=== PATIENT | female | born 1930 | race Caucasian/White ===

== ENCOUNTER 2016-12-03 18:12 | Emergency (ER) | payer OTHER, MEDICARE ==
[~2016-12-03] VITALS: Ht 165.1 cm; Wt 54.4 kg
[~2016-12-03 18:12] MED LIST: BISACODYL10 MG PR; COUMADIN 2 MG TA2 MG PO; DOCUSATE SODIU100 MG PO; LANTUS SOLOS100 U/ML SC; METFORMIN850 MG PO; NORCO 325 MG-51 TAB PO; PERCOCET 325 MG1 TA2 PO; PRINIVIL 5MG5 MG PO; ZESTORETIC 12.51 TA1 PO
--- NOTE | 2016-12-03 18:16 | ED MVC/FALL/TRAUMA COMPLAINT ---
History of Present Illness General Chief Complaint: Upper Extremity Injury Stated Complaint: RIGHT SHOULDER PAIN Source: patient Exam Limitations: no limitations Vital Signs & Intake/Output Vital Signs & Intake/Output Vital Signs Date Time Temp Pulse Resp B/P Pulse O2 O2 Flow FiO2 Ox Delivery Rate 12/03 2338 97.9 73 19 165/74 96 12/03 2216 98.0 75 18 172/68 96 Room Air 12/03 2011 97.3 74 18 170/78 96 12/03 1821 98 12/03 1816 97.3 61 16 196/84 99 Room Air ED Intake and Output 12/04 0000 12/03 1200 Intake Total 2000 Output Total Balance 1999 Intake, IV 1999 Intake, Oral 0 Patient 120 lb Weight Allergies Coded Allergies: NO KNOWN ALLERGIES (10/24/14) Triage Nurses Notes Reviewed? yes Onset: Abrupt Duration: constant Timing: single episode today Severity: severe Severity Numbers: 7 Injuries/Fall Location: upper extremity Method of Injury: direct blow, fall HPI: Patient is a 86-year-old female with a past medical history of diabetes type 2 who presents emergency room stating that 1 hour prior to arrival patient was lying in her bed she accidentally fell off the bed striking the right lateral aspect of her shoulder to the ground approximately 3 feet in the air in which she since was complaining of service having severe right shoulder pain. Patient denies any preceding episode of lightheadedness or dizziness Denies any head strike denies any back pain neck pain chest pain abdominal pain elbow pain or wrist pain. Patient was brought in by ambulance. Patient states that right shoulder movements make worse. It was noted by me the EMS took a blood fingerstick and noted to be excessively high and unreadable. (EVA BARKSDALE,ALESSANDRO) Reconcile Medications Hydrocodone/Acetaminophen (Vicodin 5-300 MG Tablet) 5 MG-300 MG TABLET 1 TAB PO TID PRN PAIN DO NOT OPERATE MOTOR VEHICLES WITH THIS MEDICATION Insulin Aspart Protam & Aspart (Novolog Mix 70-30 Flexpen Syrn) 100 UNIT/ML (70- 30) INSULN.PEN 20 UNITS SC QPM DM (Reported) (BETTY ZAMORA,BRITTANI Shrestha) Past History Medical History Any Pertinent Medical History? see below for history Endocrine: diabetes History of MRSA: No History of VRE: No History of CDIFF: No Pneumonia Vaccine: 07/26/06 Influenza Vaccine: 07/26/14 Surgical History Surgical History: non-contributory Psychosocial History Who do you live with Patient/Self What is your primary language Tajik Family History Hx Contributory? No (ALESSANDRO BARNES) Review of Systems Review of Systems Constitutional: Reports: no symptoms. Eyes: Reports: no symptoms. Ears, Nose, Throat, Mouth: Reports: no symptoms. Respiratory: Reports: no symptoms. Cardiovascular: Reports: no symptoms. Gastrointestinal/Abdominal: Reports: no symptoms. Genitourinary: Reports: no symptoms. Musculoskeletal: Reports: see HPI, joint pain. Skin: Reports: no symptoms. Neurological/Psychological: Reports: no symptoms. All Other Systems: Reviewed and Negative (ALESSANDRO BARNES) Physical Exam Physical Exam General Appearance: no apparent distress, alert, comfortable Comments: Well-developed well-nourished person in no acute distress HEENT: Normal EENT exam, Neck: Supple, no lymphadenopathy, normal range of motion without pain or tenderness No central spinous tenderness, normal inspection Back:. No central spine tenderness normal inspection Cardiovascular: Regular rate and rhythms no murmurs rubs or gallops, normal JVP Respiratory: Chest nontender. No respiratory distress.breath sounds clear to auscultation bilaterally Abdomen: Soft, nontender nondistended, no appreciable organomegaly. Normal bowel sounds. No ascites Extremity: No edema, no calf tenderness to palpation, normal and equal pulses. Right shoulder general is glenohumeral point tenderness patient unable to active move shoulder Right elbow normal inspection nontender full active range of motion Right wrist normal inspection nontender full active range of motion Right upper extremity dermatomes intact radial pulse +2 capillary refill intact Neuro: Alert oriented x3, motor sensory normal, Skin: No appreciable rash on exposed skin, skin is warm and dry. Psych: Mood and affect is normal, memory and judgment is normal. Core Measures ACS in differential dx? No Severe Sepsis Present: No Septic Shock Present: No (ALESSANDRO BARNES) Progress Differential Diagnosis: aoritic dissection, abd injury, C/T/L spine injury, ext injury, ICH, pelvis injury, pnemothorax, spinal cord injury Plan of Care: Orders Procedure Date/time Status LACTIC ACID 12/03 2143 Active Durable Medical Equipment 12/03 1933 Active URINALYSIS 12/03 192 Complete MIXED VENOUS BLOOD GAS (GEN) 12/03 1843 Active LACTIC ACID 12/03 1843 Complete COMPREHENSIVE METABOLIC PANEL 12/03 1843 Complete CBC WITHOUT DIFFERENTIAL 12/03 1843 Complete ACETONE 12/03 1843 Complete FingerStick- Glucose 12/03 1815 Active Laboratory Tests 12/03/161928: Urine Color STRAW, Urine Clarity CLEAR, Urine pH 6.5, Ur Specific Davidson <= 1.005, Urine Protein NEG, Urine Ketones NEG, Urine Nitrite NEG, Urine Bilirubin NEG, Urine Urobilinogen 0.2, Ur Leukocyte Esterase NEG, Ur Microscopic EXAM NOT REQUIRED, Urine Hemoglobin NEG, Urine Glucose >=1000 H 12/03/161851: Anion Gap 10, Estimated GFR 53 L, BUN/Creatinine Ratio 28.0 H, Glucose 547 *H, Lactic Acid 1.6, Calcium 9.1, Total Bilirubin 0.5, AST 16, ALT 23, Alkaline Phosphatase 73, Total Protein 6.7, Albumin 3.7, Globulin 3.0, Albumin/Globulin Ratio 1.2, Acetone Level NEGATIVE 12/03/161843: CBC w Diff NO MAN DIFF REQ, RBC 4.64, MCV 87.1, MCH 29.2, RDW 13.1, MPV 8.3, Gran % 82.9 H, Lymphocytes % 10.5 L, Monocytes % 4.9, Eosinophils % 1.5, Basophils % 0.2, Absolute Granulocytes 6.5, Absolute Lymphocytes 0.8 L, Absolute Monocytes 0.4, Absolute Eosinophils 0.1, Absolute Basophils 0, PUBS MCHC 33.5 Patient on initial x-ray findings noted concerns of right humeral fracture and wished a shoulder immobilizer was placed immediately. Post neurovascular was intact for the patient's right upper extremity. Discussed patient and x-ray findings with orthopedic doctor Esme who advised patient to be placed in shoulder immobilizer and can be safely discharged for follow-up in his office tomorrow. This was discussed with patient and will comply. Patient did note to have significantly elevated blood sugar which she states that she is insulin- dependent type 2 diabetic who did not take her medications today due to the fall. Patient's blood sugar prior to discharge had improved and patient was strongly advised to continue with blood sugar regimen and follow up with wine cellar worker Dr. Diamond. Upon discharge patient looks well no apparent distress. Discussed disposition plan with Dr. Alarcon who agrees. (EVA BARKSDALE,ALESSANDRO) Diagnostic Imaging: Viewed by Me: Radiology Read. Radiology Impression: fracture Comments: PATIENT: KATHLEEN HAIRSTON PRESENT AGE: 86 PATIENT ACCOUNT NO: [id number] : 30 LOCATION: [facility] ORDERING PHYSICIAN: ALESSANDRO BARKSDALE SERVICE DATE: 12/03/16 EXAM TYPE: RAD - XRY-SHOULDER COMPLETE-RIGHT EXAMINATION: XR SHOULDER, RIGHT CLINICAL INFORMATION: Fall. Right shoulder pain. COMPARISON: None TECHNIQUE: AP external rotation, Grashey, scapular Y, and axillary views of the right shoulder. FINDINGS: There is a surgical neck comminuted fracture right humerus. No dislocation seen. The AC joint is intact catheter intact. The soft tissues are normal. IMPRESSION: Comminuted fracture surgical neck right humerus without dislocation. (ALESSANDRO BARNES) Departure Departure Disposition: HOME OR SELF CARE Condition: Stable Clinical Impression Primary Impression: Right humeral fracture Secondary Impressions: Hyperglycemia Referrals: ISAK ZAMORA,ERICA Joseph (PCP/Family) NICO ZAMORA,YOHAN Roman Additional Instructions: As discussed when you arrive home please check her blood sugar again and IF NEEDED GIVE YOURSELF insulin as directed by your wine cellar worker. Tomorrow follow up with your wine cellar worker Dr. Diamond for further evaluation and treatment. Tomorrow please follow-up with orthopedic doctor Dr. WALSH tomorrow for further evaluation treatment. Continue TO use the shoulder immobilizer placed ON YOU IN the emergency room at all times for stability and support. Begin [id number] ibuprofen for pain and inflammation and begin the prescription of Vicodin for breakthrough pain relief. If symptoms worsen return to the emergency room. Prescriptions waiting at [facility] pharmacy Departure Forms: Customer Survey General Discharge Information Prescriptions: Current Visit Scripts Hydrocodone/Acetaminophen (Vicodin 5-300 MG Tablet) 1 TAB PO TID PRN PAIN #12 TAB DO NOT OPERATE MOTOR VEHICLES WITH THIS MEDICATION (ALESSANDRO BARNES) PA/SAMPLE DYE MIXER Co-Sign Statement Statement: ED Attending supervision documentation- [X] I saw and evaluated the patient. I have also reviewed all the pertinent lab results and diagnostic results. I agree with the findings and the plan of care as documented in the PA's/SAMPLE DYE MIXER's documentation. [X] I have reviewed the ED Record and agree with the PA's/SAMPLE DYE MIXER's documentation. [] Additions or exceptions (if any) to the PAs/SAMPLE DYE MIXER's note and plan are summarized below: [] (BETTY ZAMORA,BRITTANI Shrestha) Procedures Splinting Location: RIGHT SHOULDER Splint: SHOULDER IMMOBILIZER Splint Applied By: splint applied by me Pre-Proc Neuro Vasc Exam: normal Post-Proc Neuro Vasc Exam: normal (EVA BARKSDALE,ALESSANDRO)
[2016-12-03 19:06] LABS: ABSOLUTE BASOPHIL COUNT 0 /CUMM (0.0-0.2); ABSOLUTE EOSINOPHIL COUNT 0.1 /CUMM (0.0-0.7); ABSOLUTE GRANULOCYTE CT 6.5 /CUMM (1.4-6.5); ABSOLUTE LYMPH COUNT 0.8 /CUMM (1.2-3.4); ABSOLUTE MONOCYTE COUNT 0.4 /CUMM (0.10-0.60); BASOPHIL % 0.2 % (0.0-2.0); EOSINOPHIL % 1.5 % (0-5); GRANULOCYTE % 82.9 % (42.2-75.2); HEMATOCRIT 40.4 % (37-47); MEAN CORPUSCULAR HGB 29.2 PG (27.0-31.0); MEAN CORPUSCULAR HGB CONC 33.5 G/DL (33.0-37.0); MEAN CORPUSCULAR VOLUME 87.1 FL (81.0-99.0); MEAN PLATELET VOLUME 8.3 FL (7.4-10.4); PLATELET COUNT 223 /CUMM (130-400); RBC DISTRIBUTION WIDTH 13.1 % (11.5-14.5); RED BLOOD CELL CT 4.64 /CUMM (4.20-5.40); WHITE BLOOD CELL COUNT 7.9 /CUMM (4.8-10.8)
--- NOTE | 2016-12-03 19:22 | RADIOLOGY REPORT ---
EXAMINATION: XR SHOULDER, RIGHT CLINICAL INFORMATION: Fall. Right shoulder pain. COMPARISON: None TECHNIQUE: AP external rotation, Grashey, scapular Y, and axillary views of the right shoulder. FINDINGS: There is a surgical neck comminuted fracture right humerus. No dislocation seen. The AC joint is intact catheter intact. The soft tissues are normal. IMPRESSION: Comminuted fracture surgical neck right humerus without dislocation.
[2016-12-03] MEDS ORDERED: VICODIN 5-3001 EACH PO (23:09)
[2016-12-03 23:38] VITALS: BP 165/74
[2016-12-04] MEDS ORDERED: NOVOLOG MI100 UNIT/2 SC (21:34)
== END 2016-12-03 23:39 ==
LOC: ERH 18:12
PROVIDERS: Physician Assistant
DX: S42.211A Unspecified displaced fracture of surgical neck of right humerus, initial encounter for closed fracture (principal); W06.XXXA Fall from bed, initial encounter
CPT/HCPCS: 73030-RT; 81003; 96372; 96374; 96375; J1815

== ENCOUNTER 2016-12-04 19:48 | Inpatient (IN) | payer OTHER, MEDICARE ==
[~2016-12-04] VITALS: Ht 165.1 cm; Wt 51.7 kg
[~2016-12-04 19:48] MED LIST changes: +VICODIN 5-3001 EACH PO
--- NOTE | 2016-12-04 20:42 | ED GENERAL ADULT ---
History of Present Illness General Chief Complaint: General Adult Stated Complaint: SIB DR PARISI FOR ADMISSION Source: patient, family Exam Limitations: no limitations Vital Signs & Intake/Output Vital Signs & Intake/Output Vital Signs Date Time Temp Pulse Resp B/P Pulse O2 O2 Flow FiO2 Ox Delivery Rate 12/04 2236 98.2 66 16 180/78 95 Room Air 12/04 2007 98.2 62 18 152/79 96 Room Air ED Intake and Output 12/05 0000 12/04 1200 Intake Total 0 Output Total Balance 0 Intake, Oral 0 Allergies Coded Allergies: NO KNOWN ALLERGIES (10/24/14) Reconcile Medications Hydrocodone/Acetaminophen (Vicodin 5-300 MG Tablet) 5 MG-300 MG TABLET 1 TAB PO TID PRN PAIN DO NOT OPERATE MOTOR VEHICLES WITH THIS MEDICATION Insulin Aspart Protam & Aspart (Novolog Mix 70-30 Flexpen Syrn) 100 UNIT/ML (70- 30) INSULN.PEN 20 UNITS SC QPM DM (Reported) Triage Note: TRIAGE; PT TO ED WITH FAMILY, STATES THAT THEY WERE D/C FROM THE ER HERE LAST NIGHT. FAMILY STATES THEY DONT THINK THEY SHOULD HAVE GONE HOME. STATES THAT PT WAS DX WITH A BROKEN RT ARM, AND IS CURRENTLY IN A SLING. STATES THAT PT HAS NOT BEEN ABLE TO WALK WELL AT HOME, LIVES AT HOME IN AN APARTMENT, BUT HAS TO WALK UP STAIRS TO GET TO IT. STATES THAT IT IS GETTING DIFFICULT FOR THE FAMILY TO KEEP CARING FOR HER. DENIES HAVING ANY SERVICES AT HOME LIKE NURSES OR AIDES. FAMILY CALLED DR PARISI ([facility]) AND TOLD TO COME HERE FOR ADMISSION. Triage Nurses Notes Reviewed? yes Onset: Gradual Duration: day(s): (2) Timing: no prior history Injury Environment: home Severity: moderate Severity Numbers: 8 No Modifying Factors: none HPI: Patient is an 86 yo female with history of diabetes presenting to the emergency department with chief complaint of lower extremity weakness, right arm pain. She reports that she was seen and evaluated here in the emergency department yesterday and diagnosed with a right proximal humeral fracture and placed in a sling. Patient is usually ambulatory with a walker and has not been able to use a walker secondary to use of sling. Patient also reports that over the past day and a half her lower extremities have been weak. She feels like she can't take a few steps without falling. Family is concerned because she was on a second floor apartment. It is unsafe for her to be at home. Patient denying any nausea vomiting fevers or chills chest pain or shortness of breath. Denies any more falls. Denies any numbness or tingling. (NEETU BLUE) Past History Travel History Traveled to [place] past 21 day No Medical History Any Pertinent Medical History? see below for history Endocrine: diabetes History of MRSA: No History of VRE: No History of CDIFF: No Surgical History Surgical History: non-contributory Psychosocial History Who do you live with Patient/Self What is your primary language Hungarian Tobacco Use: Never used Family History Hx Contributory? No (NEETU BLUE) Review of Systems Review of Systems Constitutional: Reports: weakness. Comments Review of systems: See HPI, All other systems negative. Constitutional, no chills fever or weight loss HEENT: No visual changes no sore throat no congestion Cardiovascular: No chest pain ,palpitation , orthopnea or ankle swelling Skin, no jaundice no rashes Respiratory: No dyspnea cough sputum or hemoptysis GI: No nausea no vomiting : No dysuria No hematuria Muscle skeletal: no back pain, no neck pain, Neurologic: No numbness no confusion Psych: No stress anxiety or depression,. Heme/endocrine: No bruising no bleeding no polyuria or polydipsia Immunology: No splenectomy or history of AIDS (NEETU BLUE) Physical Exam Physical Exam General Appearance: well developed/nourished, no apparent distress, alert, awake , comfortable Comments: Well-developed well-nourished person in no acute distress HEENT: Pupils equally round and reactive to light and accommodation. Nose is atraumatic. External auditory canal and Tympanic membranes clear. Pharynx normal. No swelling or edema. Neck: Normal inspection Back: Nontender Cardiovascular: Regular rate and rhythms no murmurs rubs or gallops, normal JVP Respiratory: Chest nontender. No respiratory distress.breath sounds clear to auscultation bilaterally Extremity: No edema, right upper extremity is in a sling. Able to move right hand without difficulty or pain. Radial pulses are 2+ bilaterally. Full range of motion of left upper and lower extremities without difficulty or pain. Muscular strength is 4 out of 5 in the lower extremities and left upper extremity while seated on the stretcher. Patient requiring max assist of one to stand at bedside with unsteady lower extremities. Neuro: Alert oriented x3, motor sensory normal, cranial nerves II through XII grossly intact. Skin: No appreciable rash on exposed skin, skin is warm and dry. Psych: Mood and affect is normal, memory and judgment is normal. Core Measures ACS in differential dx? No CVA/TIA Diagnosis: No Severe Sepsis Present: No Septic Shock Present: No (NEETU BLUE) Progress Differential Diagnoses I considered the following diagnoses in my evaluation of the patient: Multifactorial gait disorder, hyperglycemia, need for rehabilitation services, weakness, electrolyte abnormal any, dehydration, viral syndrome Plan of Care: Orders Procedure Date/time Status Regular Diet 12/05 B Active OXYGEN SETUP (GEN) 12/04 2328 Active Saline Lock 12/04 2328 Active Admit to inpatient 12/04 2328 Active Vital Signs 12/04 2328 Active Activity/Ambulation 12/04 2328 Active Code Status 12/04 2328 Active Patient Data 12/04 2242 Active Intake & Output 12/04 2053 Active FingerStick- Glucose 12/04 2039 Active URINALYSIS 12/04 2039 Active TROPONIN LEVEL 12/04 2039 Complete GLYCOSYLATED HGB 12/04 2039 Active COMPREHENSIVE METABOLIC PANEL 12/04 2039 Complete CBC WITHOUT DIFFERENTIAL 12/04 2039 Complete ACETONE 12/04 2039 Complete EKG 12/04 2039 Active Laboratory Tests 12/04/162111: Hemoglobin A1c Pending, CBC w Diff NO MAN DIFF REQ, RBC 4.10 L, MCV 86.8, MCH 29.4, RDW 13.3, MPV 8.0, Gran % 72.4, Lymphocytes % 13.9 L, Monocytes % 11.2 H , Eosinophils % 2.2, Basophils % 0.3, Absolute Granulocytes 5.9, Absolute Lymphocytes 1.1 L, Absolute Monocytes 0.9 H, Absolute Eosinophils 0.2, Absolute Basophils 0, PUBS MCHC 33.8 12/04/162039: Anion Gap 7, Estimated GFR > 60, BUN/Creatinine Ratio 20.0, Glucose 188 H, Calcium 9.3, Total Bilirubin 0.6, AST 16, ALT 21, Alkaline Phosphatase 60, Troponin I < 0.01, Total Protein 6.2 L, Albumin 3.4 L, Globulin 2.8, Albumin/ Globulin Ratio 1.2, Acetone Level NEGATIVE Initial ED EKG: sinus rhythm at 58 bpm Comments: on arrival patient no acute distress, right upper extremity is in a sling. She is weak when standing at bedside. Patient will require rehabilitation services. Family informed of all upper results. Patient will be admitted for multifactorial gait disorder, weakness, hyperglycemia. Discharge at this time will be medically harmful. Patient unsafe home. Patient requiring physical therapy evaluation. (NEETU BLUE) Departure Departure Time of Disposition: 2241 Disposition: STILL A PATIENT Condition: Stable Clinical Impression Primary Impression: Multifactorial gait disorder Secondary Impressions: Hyperglycemia, Weakness Referrals: ERICA PARISI MD (PCP/Family) Departure Forms: Customer Survey General Discharge Information Admission Note Spoke With: ANIBAL FOSTER MD Documentation of Exam: Documentation of any treatments & extenuating circumstances including Concerns Regarding Discharge (functional status, medication knowledge or non-compliance, living conditions, etc.) that warrant an admission rather than observation: Patient requiring physical therapy consultation, rehabilitation placement, pain assessment, serial fingerstick checks and monitoring for hyperglycemia which can also continue to weakness. Unsafe at home secondary to new right upper extremity fracture. (NEETU BLUE) PA/GARDENER FLORIST Co-Sign Statement Statement: ED Attending supervision documentation- x I saw and evaluated the patient. I have also reviewed all the pertinent lab results and diagnostic results. I agree with the findings and the plan of care as documented in the PA's/GARDENER FLORIST's documentation. [] I have reviewed the ED Record and agree with the PA's/GARDENER FLORIST's documentation. [] Additions or exceptions (if any) to the PAs/GARDENER FLORIST's note and plan are summarized below: [] (MRAIAM MARIE MD) Critical Care Note Critical Care Note Critical Care Time: non-applicable (NEETU LBUE)
[2016-12-04 21:27] LABS: ABSOLUTE BASOPHIL COUNT 0 /CUMM (0.0-0.2); ABSOLUTE EOSINOPHIL COUNT 0.2 /CUMM (0.0-0.7); ABSOLUTE GRANULOCYTE CT 5.9 /CUMM (1.4-6.5); ABSOLUTE LYMPH COUNT 1.1 /CUMM (1.2-3.4); ABSOLUTE MONOCYTE COUNT 0.9 /CUMM (0.10-0.60); BASOPHIL % 0.3 % (0.0-2.0); EOSINOPHIL % 2.2 % (0-5); GRANULOCYTE % 72.4 % (42.2-75.2); HEMATOCRIT 35.6 % (37-47); MEAN CORPUSCULAR HGB 29.4 PG (27.0-31.0); MEAN CORPUSCULAR HGB CONC 33.8 G/DL (33.0-37.0); MEAN CORPUSCULAR VOLUME 86.8 FL (81.0-99.0); PLATELET COUNT 220 /CUMM (130-400); RBC DISTRIBUTION WIDTH 13.3 % (11.5-14.5); WHITE BLOOD CELL COUNT 8.1 /CUMM (4.8-10.8)
[2016-12-04] MEDS ORDERED: NOVOLOG MI100 UNIT/2 SC (21:34)
--- NOTE | 2016-12-05 02:31 | History & Physical ---
NORMA ARCHIBALD 12/05/16 0221: General Information and HPI Source of Information: patient, family Exam Limitations: no limitations History of Present Illness: She is 86-year-old woman with past medical history of diabetes. She was recently here in [facility] ER on December 03 for right shoulder pain after having a mechanical fall. She was found to have a Comminuted fracture surgical neck right humerus without dislocation. She was placed in shoulder immobilizer and told to follow-up with orthopedic. She was also having hyperglycemia, blood sugar 547. She was advised to follow charger operator, Dr. Diamond. Today patient presented in ER with family stating that patient lives alone and is not able to take care of herself and perform her activities of daily living. She does not have any health services at home. Patient was also having difficulty ambulating lately. Currently patient offers no complaints except mild pain in her right arm that gets worse upon movement. She denies any breathing difficulty, chest pain or discomfort, dizziness or lightheadedness, palpitations, nausea, vomiting, abdominal pain, diarrhea or constipation, any change in urinary habits, leg swelling. She also denies any numbness or tingling of her right arm/hand. Allergies/Medications Allergies: Coded Allergies: NO KNOWN ALLERGIES (10/24/14) Home Med list Hydrocodone/Acetaminophen (Vicodin 5-300 MG Tablet) 5 MG-300 MG TABLET 1 TAB PO TID PRN PAIN DO NOT OPERATE MOTOR VEHICLES WITH THIS MEDICATION Insulin Aspart Protam & Aspart (Novolog Mix 70-30 Flexpen Syrn) 100 UNIT/ML (70- 30) INSULN.PEN 20 UNITS SC QPM DM (Reported) Past History Travel History Traveled to [place] past 21 day No Medical History Endocrine: diabetes History of MRSA: No History of VRE: No History of CDIFF: No Surgical History Surgical History: RIGHT KNEE SURGERY, RIGHT HIP SURGERY Past Family/Social History Psychosocial History Who Do You Live With? self Services at Home: None Smoking Status: Never Smoked ETOH Use: occasional use Illicit Drug Use: denies illicit drug use Review of Systems Review of Systems Constitutional: Reports: see HPI. Exam & Diagnostic Data Last 24 Hrs of Vital Signs/I&O Vital Signs Date Time Temp Pulse Resp B/P Pulse O2 O2 Flow FiO2 Ox Delivery Rate 12/05 224 98.2 70 18 150/80 97 Room Air 12/04 2236 98.2 66 16 180/78 95 Room Air 12/04 2007 98.2 62 18 152/79 96 Room Air Intake & Output 12/05 0800 12/05 0000 12/04 1600 Intake Total 0 Output Total Balance 0 Intake, Oral 0 Physical Exam General Appearance Alert, Oriented X3, Cooperative, No Acute Distress, RIGHT SHOULDER IMMOBILIZER Skin No Rashes HEENT Mucous Membr. moist/pink Neck Supple Cardiovascular Regular Rate Lungs Clear to Auscultation Abdomen Normal Bowel Sounds, Soft, No Tenderness Neurological Normal Speech, Strength at 5/5 X4 Ext, Sensation Intact, Cranial Nerves 3-12 NL Extremities No Edema, Normal Pulses, right shoulder braces in place. Range of motion was not assessed because of pain. Pulses palpable. Sensations intact Assessment/Plan Assessment: She is 86-year-old woman with past medical history of diabetes, recent right humeral fracture status post mechanical fall is going to be admitted on general medicine floor as patient and her family is not able to take care of her. Lately she is having difficulty ambulating and unsteady with her gait. Please note patient lives alone but sometimes daughter helps her to perform her activities of daily living. Problem list 1. Patient might need rehabilitation placement due to above-mentioned reasons 2. Poorly controlled diabetes mellitus 3. High blood pressure. Does not have history of hypertension. In ER blood pressure was 194/80 manually. Plan We will admit patient on general medicine floor. Vitals every shift. Because of high blood pressure patient was given 1 time dose of by mouth amlodipine. We will closely monitor blood pressure. If persistently high can start her on scheduled antihypertensive. Pain management with Tylenol, Vicodin and Toradol. Ortho consult in a.m. Endo consult for diabetes management. Patient has been started on NovoLog insulin sliding scale. Accu-Cheks before each meal and at bedtime. Physical therapy evaluation and treatment. Pain management pathway. Consistent carbohydrate diet. Subcutaneous Lovenox for DVT prophylaxis. Full code As Ranked By This Provider Problem List: 1. Right humeral fracture 2. Hyperglycemia 3. Multifactorial gait disorder 4. Weakness Core Measures/Miscellaneous Acute Coronary Syndrome ACS Diagnosis: No Cerebrovascular Accident CVA/TIA Diagnosis: No Congestive Heart Failure CHF Diagnosis: No Venous Thromboembolism VTE Risk Factors: Acute medical illness, Age > 40 VTE Prophylaxis Ordered Inpt: Pharm- Lovenox No [facility] V[facility] prophylaxis d/t: No contraindications No VTE Pharm Prophylaxis d/t: No contraindications VTE Diagnosis: No VTE Type: NONE VTE Confirmed by (Test): NONE Severe Sepsis Severe Sepsis Present: No Septic Shock Septic Shock Present: No Miscellaneous Documentation Attending Case Discussed With: INO [facility]OST[facility] Primary Care Physician: ERICA PARISI MD A Patient sees these Specialists MD Dr. Vivek Ovalle Level of Patient Care: General Medicine CRISTIAN ZAMORA, [facility] 12/05/16 0604: Attending MD Review Statement Attending Statement Attending MD Statement: examined this patient, discuss w/resident/PA/MOTOR VEHICLE OR CARAVAN SALESPERSON, agreed w/resident/PA/MOTOR VEHICLE OR CARAVAN SALESPERSON, discussed with family Attending Assessment/Plan: 86 yo F with h/o T2DM on insulin, HTN not on meds, sinus bradycardia, was seen in the ER 1 day prior after mechanical fall (rolled off the bed) resulting in right shoulder pain Xray revealed comminuted fracture surgical neck of right humerus without dislocation. Right shoulder sling was placed and she was discharged home on pain medications and to follow up with Ortho (Dr. Dodge). At baseline, she walks with a walker and lives by herself. She stayed with her daughter last night, and this morning felt extremely weak to her lower extremities with inability to walk. Vitals are stable except for hypertension. Labs unremarkable except for hyperglycemia. EKG: Sinus bradycardia. Admitting for lower extremity weakness, gait instability needs PT eval. Check TSH, B12 and Vit D. Possible placement. Right shoulder fracture s/p sling immobilizer pain management, Ortho eval, no surgical intervention. Uncontrolled diabetes accucheks, check HbA1c, continue novolog SS, Endo consult. Hypertension ?pain induced if persistently elevated, would consider lisinopril. DVT ppx Lovenox. Full code.
[2016-12-05 02:47] VITALS: BP 190/90
--- NOTE | 2016-12-05 05:13 | PN- Housestaff ---
Subjective Follow-up For: Comminuted fracture surgical neck right humerus without dislocation. S/P fall Subjective: No complains at this point Review of Systems Constitutional: Reports: see HPI. Objective Last 24 Hrs of Vital Signs/I&O Vital Signs Date Time Temp Pulse Resp B/P Pulse O2 O2 Flow FiO2 Ox Delivery Rate 12/05 0656 98.7 51 20 172/80 96 Room Air 12/05 0247 98.1 61 20 190/90 96 Room Air 12/05 224 98.3 60 18 194/91 97 Room Air 12/04 2236 98.2 66 16 180/78 95 Room Air 12/04 2007 98.2 62 18 152/79 96 Room Air Intake & Output 12/05 1600 12/05 0800 12/05 0000 Intake Total 120 0 Output Total Balance 120 0 Intake, Oral 120 0 Patient 114 lb Weight Physical Exam General Appearance: Alert, Oriented X3 Skin: No Rashes, No Breakdown HEENT: Atraumatic, PERRLA Neck: Supple, No JVD, No thryomegaly Lymphatic: Cervical nl Lungs: Clear to Auscultation, Normal Air Movement Extremities: right upper exrtemity and weakness Assessment/Plan Assessment: This lisa 86 Y O F with insulin dependedn DMpatient had a fall at home suffered a nondisplaced humerus fracture after having a mechanical fall at home The patient is being treated in the hospital for the following problems 1. nondisplaced fracture of the right humerus 2. History of insulin-dependent diabetes mellitus: Being maintained on Novolog 70/30 mix 20 units daily. Plan Continue to monitor the general medicine floor Physical therapy and OT evaluation for the right nondisplaced fracture of the humerus Continue with hand in sling for the fracture of the humerus Pain control with NSAIDS Orthopedics recommendations appreciated Continue with insulin at home dose If the patient is evaluated for STIR the patient would require 3 nights of stay For the patient's diabetes mellitus, apparently seems that the patient is not taking care of her glucose control at home. Combination of longer acting insulin and NovoLog sliding scale should be initiated in the hospital. Recommend 8 units of Levemir daily and NovoLog sliding scale, medium scale. We will also obtain HbA1c Due to prophylaxis TIMES Full code Problem List: 1. Right humeral fracture Pain Ratin Pain Location: right humerus Pain Goal: Remain pain free Pain Plan: po troadol as needed Tomorrow's Labs & Rationales: none
--- NOTE | 2016-12-05 06:01 | Admission Certification ---
Admission Certification Certification Statement - As attending physician, I certify that at the time of - admission, based on clinical presentation, severity of - symptoms, need for further diagnostic testing and - therapeutic interventions, and risk of adverse outcomes - without in-hospital treatment, in my clinical assessment, - this patient requires an acute hospital stay for a minimum - of two nights or longer. I have also considered psychsocial - factors such as support system, advanced age, financial - issues, cognitive issues, and failed out-patient treatments, - past re-admission history, safety of patient, and lack of - compliance as applicable. Specific rationale supporting this admission is: Gait instability, weakness needs PT and possible placement. Right shoulder fracture s/p mechanical fall. Hyperglycemia.
[2016-12-05 06:56] VITALS: BP 172/80
--- NOTE | 2016-12-05 08:46 | Cons- Orthopedic ---
General Information and HPI Consulting Request Date of Consult: 12/04/16 Requested By: CRISTIAN ZAMORA,ANIBAL Reason for Consult: right humerus fracture History of Present Illness: patient had a fall at home suffered a nondisplaced humerus fracture spoke with er about this patient no surgery necessary placed in immobilizer can followup as outpatient.is neurologically intact sling in place can move wrist elbow can come out of sling to straighten elbow Allergies/Medications Allergies: Coded Allergies: NO KNOWN ALLERGIES (10/24/14) Home Med List: Hydrocodone/Acetaminophen (Vicodin 5-300 MG Tablet) 5 MG-300 MG TABLET 1 TAB PO TID PRN PAIN DO NOT OPERATE MOTOR VEHICLES WITH THIS MEDICATION Insulin Aspart Protam & Aspart (Novolog Mix 70-30 Flexpen Syrn) 100 UNIT/ML (70- 30) INSULN.PEN 20 UNITS SC QPM DM (Reported) Past History Medical History Blood Transfusion Hx: No Neurological: NONE EENT: NONE Cardiovascular: NONE Respiratory: NONE Gastrointestinal: NONE Hepatic: NONE Renal: NONE Musculoskeletal: BROKEN R ARM Psychiatric: NONE Endocrine: diabetes Blood Disorders: NONE Cancer(s): NONE 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 Home Who Do You Live With? self Services at Home: None Smoking Status: Never Smoked ETOH Use: occasional use Illicit Drug Use: denies illicit drug use Exam & Diagnostic Data Vital Signs and I&O Vital Signs Date Time Temp Pulse Resp B/P Pulse O2 O2 Flow FiO2 Ox Delivery Rate 12/05 0656 98.7 51 20 172/80 96 Room Air 12/05 0247 98.1 61 20 190/90 96 Room Air 12/05 224 98.3 60 18 194/91 97 Room Air 12/04 2236 98.2 66 16 180/78 95 Room Air 12/04 2007 98.2 62 18 152/79 96 Room Air Intake & Output 12/05 1600 12/05 0800 12/05 0000 12/04 1600 12/04 0800 12/04 0000 Intake Total 120 0 Output Total Balance 120 0 Intake, Oral 120 0 Patient 114 lb Weight Physical Exam Extremities: normal inspection (in sling neuro intact) Assessment/Plan Assessment/Plan patient in sling no surgery necessary can followup when discharged Consult Acknowledgment - Thank you for your consult request. Attending MD Review Statement Attending Statement Attending MD Statement: examined this patient (madhu
--- NOTE | 2016-12-05 11:17 | Cons- Endocrinology ---
General Information and HPI Consulting Request Date of Consult: 12/05/16 Requested By: medical team Reason for Consult: management of DM Source of Information: patient, old records Exam Limitations: no limitations History of Present Illness: She is 86-year-old woman with past medical history of diabetes. She was recently here in [facility] ER on December 03 for right shoulder pain after having a mechanical fall. She was found to have a fracture in right humerus without dislocation. However, patient lives alone and is not able to take care of herself and perform her activities of daily living. She does not have any health services at home. She was admitted to [facility] At home. she was on Novolog 70/30 mix 20 units daily. In hospital, her FSGs were 500, 439, 378, 295, 217 and 225. She was put on Novolog coverage before meals. Allergies/Medications Allergies: Coded Allergies: NO KNOWN ALLERGIES (10/24/14) Home Med List: Hydrocodone/Acetaminophen (Vicodin 5-300 MG Tablet) 5 MG-300 MG TABLET 1 TAB PO TID PRN PAIN DO NOT OPERATE MOTOR VEHICLES WITH THIS MEDICATION Insulin Aspart Protam & Aspart (Novolog Mix 70-30 Flexpen Syrn) 100 UNIT/ML (70- 30) INSULN.PEN 20 UNITS SC QPM DM (Reported) Review of Systems Review of Systems Constitutional: Reports: see HPI. Cardiovascular: Denies: chest pain. Respiratory: Denies: short of breath. GI: Denies: abdominal pain. Musculoskeletal: Reports: joint pain (shoulder pain). Hematologic/Endocrine: Denies: polyuria, polydipsia. 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 Home Who Do You Live With? self Services at Home: None Smoking Status: Never Smoked ETOH Use: occasional use Illicit Drug Use: denies illicit drug use Exam & Diagnostic Data Last 24 Hrs of Vital Signs/I&O Vital Signs Date Time Temp Pulse Resp B/P Pulse O2 O2 Flow FiO2 Ox Delivery Rate 12/05 0656 98.7 51 20 172/80 96 Room Air 12/05 0247 98.1 61 20 190/90 96 Room Air 12/05 224 98.3 60 18 194/91 97 Room Air 12/04 2236 98.2 66 16 180/78 95 Room Air 12/04 2007 98.2 62 18 152/79 96 Room Air Intake & Output 12/05 1600 12/05 0800 12/05 0000 Intake Total 120 0 Output Total Balance 120 0 Intake, Oral 120 0 Patient 114 lb Weight Physical Exam General Appearance: no apparent distress Neck: normal inspection Respiratory: lungs clear Cardiovascular: regular rate/rhythm Gastrointestinal: soft, non-tender Extremities: no edema Labs/Fareed Results: Laboratory Tests 12/04 Chemistry Sodium (137 - 145 mmol/L) 138 Potassium (3.5 - 5.1 mmol/L) 4.1 Chloride (98 - 107 mmol/L) 103 Carbon Dioxide (22 - 30 mmol/L) 28 Anion Gap (5 - 16) 7 BUN (7 - 17 mg/dL) 16 Creatinine (0.5 - 1.0 mg/dL) 0.8 Estimated GFR (>60 ml/min) > 60 BUN/Creatinine Ratio (7 - 25 %) 20.0 Glucose (65 - 99 mg/dL) 188 H Hemoglobin A1c Pending Calcium (8.4 - 10.2 mg/dL) 9.3 Total Bilirubin (0.2 - 1.3 mg/dL) 0.6 AST (14 - 36 U/L) 16 ALT (9 - 52 U/L) 21 Alkaline Phosphatase (<127 U/L) 60 Troponin I (< 0.11 ng/ml) < 0.01 Total Protein (6.3 - 8.2 g/dL) 6.2 L Albumin (3.5 - 5.0 g/dL) 3.4 L Globulin (1.9 - 4.2 gm/dL) 2.8 Albumin/Globulin Ratio (1.1 - 2.2 %) 1.2 Hematology CBC w Diff NO MAN DIFF REQ WBC (4.8 - 10.8 /CUMM) 8.1 RBC (4.20 - 5.40 /CUMM) 4.10 L Hgb (12.0 - 16.0 G/DL) 12.1 Hct (37 - 47 %) 35.6 L MCV (81.0 - 99.0 FL) 86.8 MCH (27.0 - 31.0 PG) 29.4 RDW (11.5 - 14.5 %) 13.3 Plt Count (130 - 400 /CUMM) 220 MPV (7.4 - 10.4 FL) 8.0 Gran % (42.2 - 75.2 %) 72.4 Lymphocytes % (20.5 - 51.1 %) 13.9 L Monocytes % (1.7 - 9.3 %) 11.2 H Eosinophils % (0 - 5 %) 2.2 Basophils % (0.0 - 2.0 %) 0.3 Absolute Granulocytes (1.4 - 6.5 /CUMM) 5.9 Absolute Lymphocytes (1.2 - 3.4 /CUMM) 1.1 L Absolute Monocytes (0.10 - 0.60 /CUMM) 0.9 H Absolute Eosinophils (0.0 - 0.7 /CUMM) 0.2 Absolute Basophils (0.0 - 0.2 /CUMM) 0 PUBS MCHC (33.0 - 37.0 G/DL) 33.8 Toxicology Acetone Level (NEGATIVE) NEGATIVE Assessment/Plan Assessment/Plan She is 86-year-old woman with past medical history of diabetes. She was recently here in [facility] ER on December 03 for right shoulder pain after having a mechanical fall. She was found to have a fracture in right humerus without dislocation. Patient was not able to take care of herself and to perform her activities of daily living. She was admitted to . Her glucose level was found to be 500 on admission. Her DM wasn't controlled. I was asked to see her for management of her DM. DM management: 1. start Levemir 6 units daily; 2. adjust Novolog coverage before meals and add another Novolog coverage at bedtime-- detail see the inpatient DM orders; 3. f/u HbA1c; 4,. monitior FSGs. will follow. Inpatient Diabetes Orders Before Each Meal: Bolus Insulin: Novolog < 80 mg/dl: no coverage 80-100 mg/dl: 3 units 101-120 mg/dl: 3 units 121-150 mg/dl: 3 units 151-200 mg/dl: 4 units 201-250 mg/dl: 5 units 251-300 mg/dl: 6 units 301-350 mg/dl: 7 units 351-400 mg/dl: 8 units > 400 mg/dl: 9 units Bedtime: Bolus Insulin: Novolog < 80 mg/dl: no coverage 80-100 mg/dl: no coverage 101-120 mg/dl: no coverage 121-150 mg/dl: no coverage 151-200 mg/dl: no coverage 201-250 mg/dl: no coverage 251-300 mg/dl: 2 units 301-350 mg/dl: 3 units 351-400 mg/dl: 4 units > 400 mg/dl: 5 units Consult Acknowledgment - Thank you for your consult request.
--- NOTE | 2016-12-05 12:01 | Discharge Summary ---
Visit Information Visit Dates Admission Date: 12/04/16 Discharge Date: 12/07/2016 Hospital Course Course Attending Physician: ANIBAL FOSTER MD Primary Care Physician: ERICA PARISI MD Hospital Course: This is an 86-year-old female with a past medical history of insulin-dependent diabetes mellitus presented to the [facility] with the after having a mechanical fall and ended up injuring her right hand and then radiological evidence shows that the patient has a nondisplaced fracture of the right humerus. The patient was seen in the ER for pain management and for possible evaluation for the STR Vital signs at the time of admission shows 172/86, respiration rate of 18, saturation of 96% on room air, Labs: Normal indices, WBC, hematocrit, Basic electrolyte panel within normal limits X-ray from 12/03/2016 showed a right nondisplaced fracture of the humerus: Assessment 1. Right nondisplaced fracture of the humerus 2. Insulin-dependent diabetes mellitus 3. Status post mechanical fall Hospital course The patient was admitted on the general medicine floor limited by the orthopedics design and sales consultant recommended a hand sling for the patient's nondisplaced fracture. Follow-up with the orthopedic at time of discharge For the patient's diabetes mellitus, the patient was started on 8 units of Levemir and the sliding sscale before maelas and at bedtime as follows: Before Each Meal: Bolus Insulin: Novolog < 80 mg/dl: no coverage 80-100 mg/dl: 3 units 101-120 mg/dl: 3 units 121-150 mg/dl: 3 units 151-200 mg/dl: 4 units 201-250 mg/dl: 5 units 251-300 mg/dl: 6 units 301-350 mg/dl: 7 units 351-400 mg/dl: 8 units > 400 mg/dl: 9 units Bedtime: Bolus Insulin: Novolog < 80 mg/dl: no coverage 80-100 mg/dl: no coverage 101-120 mg/dl: no coverage 121-150 mg/dl: no coverage 151-200 mg/dl: no coverage 201-250 mg/dl: no coverage 251-300 mg/dl: 2 units 301-350 mg/dl: 3 units 351-400 mg/dl: 4 units > 400 mg/dl: 5 units She is being trasnferred for STR. Allergies: Coded Allergies: NO KNOWN ALLERGIES (10/24/14) Pertinent Lab Results: Laboratory Tests 12/04 Chemistry Sodium (137 - 145 mmol/L) 138 Potassium (3.5 - 5.1 mmol/L) 4.1 Chloride (98 - 107 mmol/L) 103 Carbon Dioxide (22 - 30 mmol/L) 28 Anion Gap (5 - 16) 7 BUN (7 - 17 mg/dL) 16 Creatinine (0.5 - 1.0 mg/dL) 0.8 Estimated GFR (>60 ml/min) > 60 BUN/Creatinine Ratio (7 - 25 %) 20.0 Glucose (65 - 99 mg/dL) 188 H Hemoglobin A1c (<5.7) 9.6 H Calcium (8.4 - 10.2 mg/dL) 9.3 Total Bilirubin (0.2 - 1.3 mg/dL) 0.6 AST (14 - 36 U/L) 16 ALT (9 - 52 U/L) 21 Alkaline Phosphatase (<127 U/L) 60 Troponin I (< 0.11 ng/ml) < 0.01 Total Protein (6.3 - 8.2 g/dL) 6.2 L Albumin (3.5 - 5.0 g/dL) 3.4 L Globulin (1.9 - 4.2 gm/dL) 2.8 Albumin/Globulin Ratio (1.1 - 2.2 %) 1.2 Hematology CBC w Diff NO MAN DIFF REQ WBC (4.8 - 10.8 /CUMM) 8.1 RBC (4.20 - 5.40 /CUMM) 4.10 L Hgb (12.0 - 16.0 G/DL) 12.1 Hct (37 - 47 %) 35.6 L MCV (81.0 - 99.0 FL) 86.8 MCH (27.0 - 31.0 PG) 29.4 RDW (11.5 - 14.5 %) 13.3 Plt Count (130 - 400 /CUMM) 220 MPV (7.4 - 10.4 FL) 8.0 Gran % (42.2 - 75.2 %) 72.4 Lymphocytes % (20.5 - 51.1 %) 13.9 L Monocytes % (1.7 - 9.3 %) 11.2 H Eosinophils % (0 - 5 %) 2.2 Basophils % (0.0 - 2.0 %) 0.3 Absolute Granulocytes (1.4 - 6.5 /CUMM) 5.9 Absolute Lymphocytes (1.2 - 3.4 /CUMM) 1.1 L Absolute Monocytes (0.10 - 0.60 /CUMM) 0.9 H Absolute Eosinophils (0.0 - 0.7 /CUMM) 0.2 Absolute Basophils (0.0 - 0.2 /CUMM) 0 PUBS MCHC (33.0 - 37.0 G/DL) 33.8 Toxicology Acetone Level (NEGATIVE) NEGATIVE Urines Urine Color Cancelled Urine Clarity Cancelled Urine pH Cancelled Ur Specific [place] Cancelled Urine Protein Cancelled Urine Ketones Cancelled Urine Nitrite Cancelled Urine Bilirubin Cancelled Urine Urobilinogen Cancelled Ur Leukocyte Esterase Cancelled Ur Microscopic Cancelled Urine Hemoglobin Cancelled Urine Glucose Cancelled Disposition Summary Disposition Principal Diagnosis: Nondisplaced fracture of the right humerus Additional Diagnosis: Insulin-dependent DM Discharge Disposition: SNF Discharge Instructions General Discharge Information Code Status: Full Code Patient's Diet: As tolerated Patient's Activity: As tolerated Follow-Up Instructions/Appts: F/U the primary care physician in one week Medications at Discharge Discharge Medications: Stop taking the following medications: Hydrocodone/Acetaminophen (Vicodin 5-300 MG Tablet) 5 MG-300 MG TABLET ORAL THREE TIMES DAILY as needed for PAIN Qty = 12 Insulin Aspart Protam & Aspart (Novolog Mix 70-30 Flexpen Syrn) 100 UNIT/ML (70- 30) INSULN.PEN Inject into fatty tissue Every night Qty = 15 Start taking the following new medications: Insulin Detemir (Levemir) 100 UNIT/ML VIAL 8 Units Inject into fatty tissue DAILY Qty = 10 No Refills Comments: Last Taken: 12/07/16 Time: 1000 AM Insulin Aspart (Novolog) 100 UNIT/ML VIAL 0 Units Inject into fatty tissue BEFORE MEALS AND AT BEDTIME Qty = 10 No Refills Instructions: 80-150 3units 151-200 4 units 201-250 5 units 251-300 6 units 301-350 7 units 351-400 8 units 401-450 9 units AT bedtime 251-300 2 units 301-350 3 units 351-400 4 units 401-450 5 units Comments: Last Taken: 12/07/16 Time: 1215 PM Copies To: ISAK ZAMORA,ERICA Joseph Attending MD Review Statement Documenting Attending: NATALYA RODRIGUEZ MD Other Findings: Agree with the plan of care upon discharge.
[2016-12-05 13:54] VITALS: BP 130/90
[2016-12-05] MEDS ORDERED: LEVEMIR100 UNIT/1 SC (15:33)
--- NOTE | 2016-12-05 15:35 | Patient Discharge Instructions ---
Discharge Instructions General Discharge Information You were seen/treated for: FALL AND FARCATURE OF THE HUMERUS Special Instructions: please f/u with your pcp in1 week of discherge Acute Coronary Syndrome Inclusion Criteria At DC or during hospital stay patient has or had the following: ACS DIAGNOSIS No Discharge Core Measures Meds if any: Prescribed or Continued at Discharge Meds if any: NOT Prescribed or Continued at Discharge Congestive Heart Failure Inclusion Criteria At DC or during hospital stay patient has or had the following: CHF DIAGNOSIS No Discharge Core Measures Meds if any: Prescribed or Continued at Discharge Meds if any: NOT Prescribed or Continued at Discharge Cerebrovascular accident Inclusion Criteria At DC or during hospital stay patient has or had the following: CVA/TIA Diagnosis No Discharge Core Measures Meds if any: Prescribed or Continued at Discharge Meds if any: NOT Prescribed or Continued at Discharge Venous thromboembolism Inclusion Criteria VTE Diagnosis No VTE Type NONE VTE Confirmed by (Test) NONE Discharge Core Measures - Per Current guidelines, there needs to be overlap - treatment for the first 5 days of Warfarin therapy. - If discharged on Warfarin prior to 5 days of - overlap therapy, the patient will need to be - assessed for post discharge needs including - *Post discharge parental anticoagulation - *Warfarin and/or parental anticoagulation education - *Follow up date to check INR post discharge At least 5 days overlap therapy as Inpatient No Meds if any: Prescribed or Continued at Discharge Note: Overlap Therapy is Warfarin and Anticoagulant Meds if any: NOT Prescribed or Continued at Discharge
[2016-12-05 22:43] VITALS: BP 118/60
[2016-12-06 06:30] VITALS: BP 122/68
--- NOTE | 2016-12-06 08:23 | PN- Housestaff ---
PADMAJA ZAMORA,SUBHASH 12/06/16 0822: Subjective Follow-up For: Comminuted fracture surgical neck right humerus without dislocation. S/P fall Complaints: pain scale (0-10) Subjective: I saw and examined the patient today morning. She is doing much better today, reports 7/10 pain in her right arm. Pain medications on board. Reports no bowel movement so far. Otherwise feels fine. Review of Systems Constitutional: Reports: see HPI. Comments: ROS negative except above. Objective Last 24 Hrs of Vital Signs/I&O Vital Signs Date Time Temp Pulse Resp B/P Pulse O2 O2 Flow FiO2 Ox Delivery Rate 12/06 0630 98.4 56 18 122/68 97 Room Air 12/05 2243 98.7 58 20 118/60 98 12/05 1354 98.1 59 20 130/90 100 Room Air 12/05 1104 Room Air Physical Exam General Appearance: Alert, Oriented X3, Cooperative, No Acute Distress Skin: No Rashes, No Breakdown HEENT: Atraumatic Neck: Supple Cardiovascular: Regular Rate, Normal S1, Normal S2, No Murmurs Lungs: Clear to Auscultation, Normal Air Movement Abdomen: Normal Bowel Sounds, Soft, No Tenderness Neurological: Normal Speech, Normal Tone Extremities: No Clubbing, No Cyanosis, 2+ pitting edema over both the feet., sling over her right arm Vascular: Normal Pulses, Pulses Symmetrical Current Medications: Current Medications Sig/Franny Start time Last Medication Dose Route Stop Time Status Admin Acetaminophen 650 MG Q6P PRN 12/05 0230 AC PO Acetaminophen/ 1 TAB Q6P PRN 12/05 0300 AC Hydrocodone Bitart PO Enoxaparin Sodium 40 MG DAILY 12/05 1000 AC 12/05 [place] 0938 Ibuprofen 600 MG Q6P PRN 12/05 0900 AC PO Insulin Aspart 0 TIDAC/HS 12/05 1200 AC 12/05 SC 1704 Insulin Detemir 6 UNITS DAILY 12/05 1000 AC 12/05 SC 0939 Ketorolac 30 MG Q8P PRN 12/05 0230 DC 12/05 Tromethamine IV 0259 Lines/Diet/Fluids Lines: peripheral lines Assessment/Plan Assessment: This lisa 86 Y O F with insulin dependedn DMpatient had a fall at home suffered a nondisplaced humerus fracture after having a mechanical fall at home The patient is being treated in the hospital for the following problems 1. nondisplaced fracture of the right humerus 2. History of insulin-dependent diabetes mellitus: Being maintained on Novolog 70/30 mix 20 units daily. Plan Continue to monitor the general medicine floor Physical therapy and OT evaluation for the right nondisplaced fracture of the humerus Continue with hand in sling for the fracture of the humerus Pain control with NSAIDS/vicodin/tyelnol Orthopedics recommendations appreciated Continue with insulin at home dose If the patient is evaluated for STR the patient would require 3 nights of stay For the patient's diabetes mellitus, apparently seems that the patient is not taking care of her glucose control at home. Combination of longer acting insulin and NovoLog sliding scale should be initiated in the hospital. Recommend 8 units of Levemir daily and NovoLog sliding scale, medium scale. HbA1C - 9.6, needs further tightening of sugars - may be as an outpatient. Due to prophylaxis - SC lovenox Full code Problem List: 1. Right humeral fracture 2. Multifactorial gait disorder 3. Weakness Pain Ratin Pain Location: right arm Pain Goal: Pain 4 or less Pain Plan: Vicodin, ibuprfen, Tylenol Tomorrow's Labs & Rationales: NONE MARCELINO ZAMORA,COREY 12/06/16 1330: Attending MD Review Statement Attending Statement Attending MD Statement: examined this patient, discuss w/resident/PA/TREE CLIMBER, agreed w/resident/PA/TREE CLIMBER, reviewed EMR data (avail), discussed with nursing, reviewed images, amended to note Attending Assessment/Plan: 86-year-old female, admitted with gait instability, with prior history of fracture of the humerus, will be staying for another 2 nights to be eligible for the short-term rehabilitation. Patient to be discharged to short-term rehabilitation on Thursday.
--- NOTE | 2016-12-06 10:56 | PN- Diabetes ---
Assessment/Plan Assessment: This patient has a history of type 2 diabetes mellitus. She was not taking care of herself at home. She is often forgetful. In the hospital the patient has been placed on Levemir 6 units daily and sliding scale NovoLog. Her blood sugars yesterday were 225, 279, 187, and 168. This morning her fingerstick blood sugar is 212. Plan: Suggest continue the present insulin. There is concern about the patient's safety at home because she is often noncompliant on her diabetic regimen and does not check her blood sugars. Also the patient will not be able inject insulin properly now that she has lost the usage of her right arm to the fracture. Her right arm is presently in a sling. Subjective Subjective: Pain right shoulder Review of Systems Constitutional: Denies: chills, fever. Cardiovascular: Denies: chest pain. Respiratory: Denies: short of breath. Gastrointestinal: Denies: nausea, vomiting. Skin: Reports: no symptoms. Objective Last 24 Hrs of Vital Signs/I&O Vital Signs Date Time Temp Pulse Resp B/P Pulse O2 O2 Flow FiO2 Ox Delivery Rate 12/06 0630 98.4 56 18 122/68 97 Room Air 12/05 2243 98.7 58 20 118/60 98 12/05 1354 98.1 59 20 130/90 100 Room Air 12/05 1104 Room Air Vital Signs Date Time Temp Pulse Resp B/P Pulse O2 O2 Flow FiO2 Ox Delivery Rate 12/06 0630 98.4 56 18 122/68 97 Room Air 12/05 2243 98.7 58 20 118/60 98 12/05 1354 98.1 59 20 130/90 100 Room Air 12/05 1104 Room Air Physical Exam General Appearance: no apparent distress, alert, awake, comfortable Head: normal appearance Neck: normal inspection Respiratory: normal breath sounds Cardiovascular: regular rate/rhythm Abdomen: normal bowel sounds, soft Extremities: right arm sling Current Medications: Current Medications Sig/Franny Start time Last Medication Dose Route Stop Time Status Admin Acetaminophen 650 MG Q6P PRN 12/05 0230 AC PO Acetaminophen/ 1 TAB Q6P PRN 12/05 0300 AC Hydrocodone Bitart PO Enoxaparin Sodium 40 MG DAILY 12/05 1000 AC 12/06 SC 0913 Ibuprofen 600 MG Q6P PRN 12/05 0900 AC PO Insulin Aspart 0 TIDAC/HS 12/05 1200 AC 12/06 [place] 0912 Insulin Detemir 6 UNITS DAILY 12/05 1000 AC 12/06 [place] 09
[2016-12-06 13:59] VITALS: BP 134/68
[2016-12-06] MEDS ORDERED: NOVOLOG100 UNIT/2 SC (22:46)
[2016-12-06 23:43] VITALS: BP 130/64
[2016-12-07 06:35] VITALS: BP 130/68
--- NOTE | 2016-12-07 09:13 | PN- Housestaff ---
See Addendum Subjective Follow-up For: Comminuted fracture surgical neck right humerus without dislocation. Complaints: no complaints Subjective: Patient was visited and examined this morning. She has no complaints. Her right arm is his flank to her neck no complain of numbness tingling in the affected arm. She was discharged on October 02 and was brought him back to the hospital and currently waiting for that in short-term rehabilitation. Review of Systems Constitutional: Reports: see HPI. Denies: chills, diaphoresis, fever, malaise, weakness, unexplained weight loss. EENTM: Reports: see HPI. Denies: blurred vision, double vision, visual changes, eye pain, eye drainage, eye tearing, icterus, ear discharge, ear pain, ear redness, hearing changes, nasal congestion, epistaxis, nasal pain, throat pain, throat swelling, mouth pain, tooth pain. Cardiovascular: Reports: see HPI. Denies: chest pain, edema, orthopena, palpitations, peripheral edema, syncope. Respiratory: Reports: see HPI. Denies: cough, hemoptysis, orthopnea, short of breath, sputum production, stridor, wheezing. Gastrointestinal: Reports: see HPI. Denies: abdominal pain, bloating, constipation, diarrhea, distention, bowel incontinence, melena, nausea, bloody stool, changes in stool, vomiting, steatorrhea. Musculoskeletal: Reports: see HPI, joint pain. Neurological/Psychological: Reports: see HPI. Denies: anxiety, ataxia, cognitive dysfunction, confusion, depressed, dementia, emotional problems, headache, numbness, paresthesia, pre- existing deficit, petit mal seizures, tingling, tremors, tonic-clonic seizures, unable to move lower ext, unable to move upper ext, weakness, other. Objective Last 24 Hrs of Vital Signs/I&O Vital Signs Date Time Temp Pulse Resp B/P Pulse O2 O2 Flow FiO2 Ox Delivery Rate 12/07 0635 98.0 71 18 130/68 99 Room Air 12/06 2343 97.0 53 20 130/64 96 Room Air 12/06 1359 98.3 64 20 134/68 96 Intake & Output 12/07 1600 12/07 0800 12/07 0000 Intake Total 100 100 Output Total Balance 100 100 Intake, Oral 100 100 Physical Exam General Appearance: Alert, Oriented X3, Cooperative, No Acute Distress Skin: No Rashes, No Breakdown, No Significant Lesion HEENT: Atraumatic, PERRLA, EOMI, Mucous Membr. moist/pink Neck: Supple, No JVD, No thryomegaly, +2 Carotid Pulse wo Bruit, No LAD Cardiovascular: Normal S1, Normal S2, No Murmurs Lungs: Clear to Auscultation, Normal Air Movement Neurological: Strength at 5/5 X4 Ext, Sensation Intact Extremities: No Cyanosis, No Edema, right arm slung to neck limited range of motion due to severe pain secondary to humerus fracture Vascular: Normal Pulses, Pulses Symmetrical Breasts: Breast appear nl, No breast discharge, No breast masses Current Medications: Current Medications Sig/Franny Start time Last Medication Dose Route Stop Time Status Admin Acetaminophen 650 MG Q6P PRN 12/05 0230 AC PO Acetaminophen/ 1 TAB Q6P PRN 12/05 0300 AC 12/07 Hydrocodone Bitart PO 0542 Enoxaparin Sodium 40 MG DAILY 12/05 1000 AC 12/06 SC 0913 Ibuprofen 600 MG Q6P PRN 12/05 0900 AC PO Insulin Aspart 0 TIDAC/HS 12/05 1200 AC 12/07 SC 0740 Insulin Detemir 8 UNITS DAILY 12/08 1000 AC SC Insulin Detemir 6 UNITS DAILY 12/05 1000 DC 12/06 SC 0912 Senna/Docusate Sodium 2 TAB DAILY PRN 12/06 1545 AC PO Last 24 Hrs of Lab/Fareed Results Last 24 Hrs of Labs/Mics: Labs are reviewed medication were reviewed Assessment/Plan Assessment: This lisa 86 Y O F with insulin dependedn DMpatient had a fall at home suffered a nondisplaced humerus fracture after having a mechanical fall at home The patient is being treated in the hospital for the following problems 1. nondisplaced fracture of the right humerus 2. History of insulin-dependent diabetes mellitus: Being maintained on Novolog 70/30 mix 20 units daily. Plan D/C today to STR Problem List: 1. Right patella fracture 2. Fall 3. Hyperglycemia 4. Right humeral fracture 5. Multifactorial gait disorder 6. Weakness Pain Ratin Pain Location: right arm Pain Goal: Pain 4 or less Pain Plan: tylenol Tomorrow's Labs & Rationales: none Discharge Plan Discharge Disposition: STR/NH Stable for Discharge? Yes Anticipated Discharge (Day): today
--- NOTE | 2016-12-07 09:33 | PN- Diabetes ---
Assessment/Plan Assessment: This patient has a history of type 2 diabetes mellitus. She was not taking care of herself at home. She is often forgetful. In the hospital the patient has been placed on Levemir 6 units daily and sliding scale NovoLog. Her blood sugars yesterday were 212 before breakfast, 246 before lunch, 256 before dinner, and 149 minute bedtime. This morning's fingerstick blood sugar fasting is 252. Plan: Suggest increase Levemir to 8 units once a day. Continue present sliding-scale NovoLog. Increase activity. Subjective Subjective: pain right shoulder Review of Systems Constitutional: Denies: chills, fever. Cardiovascular: Denies: chest pain. Respiratory: Denies: short of breath. Gastrointestinal: Denies: abdominal pain, nausea, vomiting. Skin: Reports: no symptoms. Objective Last 24 Hrs of Vital Signs/I&O Vital Signs Date Time Temp Pulse Resp B/P Pulse O2 O2 Flow FiO2 Ox Delivery Rate 12/07 0635 98.0 71 18 130/68 99 Room Air 12/06 2343 97.0 53 20 130/64 96 Room Air 12/06 1359 98.3 64 20 134/68 96 Intake & Output 12/07 1600 12/07 0812/07 0000 Intake Total 100 100 Output Total Balance 100 100 Intake, Oral 100 100 Vital Signs Date Time Temp Pulse Resp B/P Pulse O2 O2 Flow FiO2 Ox Delivery Rate 12/07 0635 98.0 71 18 130/68 99 Room Air 12/06 2343 97.0 53 20 130/64 96 Room Air 12/06 1359 98.3 64 20 134/68 96 Intake & Output 12/07 1600 12/07 0812/07 0000 Intake Total 100 100 Output Total Balance 100 100 Intake, Oral 100 100 Physical Exam General Appearance: no apparent distress, alert, awake Head: normal appearance Neck: normal inspection Respiratory: normal breath sounds Cardiovascular: regular rate/rhythm Abdomen: normal bowel sounds Extremities: normal inspection Current Medications: Current Medications Sig/Franny Start time Last Medication Dose Route Stop Time Status Admin Acetaminophen 650 MG Q6P PRN 12/05 0230 AC PO Acetaminophen/ 1 TAB Q6P PRN 12/05 0300 AC 12/07 Hydrocodone Bitart PO 0542 Enoxaparin Sodium 40 MG DAILY 12/05 1000 AC 12/06 SC 0913 Ibuprofen 600 MG Q6P PRN 12/05 0900 AC PO Insulin Aspart 0 TIDAC/HS 12/05 1200 AC 12/07 SC 0740 Insulin Detemir 6 UNITS DAILY 12/05 1000 AC 12/06 SC 0912 Senna/Docusate Sodium 2 TAB DAILY PRN 12/06 1545 AC PO
[2016-12-07] MEDS ORDERED: LEVEMIR100 UNIT/1 SC (10:18)
[2016-12-07 13:39] VITALS: BP 130/68
[2016-12-07 15:19] VITALS: BP 134/66
== END 2016-12-07 15:03 | DRG 638 ==
LOC: ERH 19:48 → ERHI 22:09 → ERH 22:09 → 2NA 22:09 → ENPENDDIS 22:09 → 2NA 22:09 → ERHI 23:54 → 2NA 12-05 02:16
PROVIDERS: Physician Assistant; ADMIT Student in an Organized Health Care Education/Training Program
DX: E11.65 Type 2 diabetes mellitus with hyperglycemia (principal); S42.214A Unspecified nondisplaced fracture of surgical neck of right humerus, initial encounter for closed fracture; I10 Essential (primary) hypertension; Z79.4 Long term (current) use of insulin; R26.2 Difficulty in walking, not elsewhere classified; W18.30XA Fall on same level, unspecified, initial encounter; Y93.9 Activity, unspecified; Y92.009 Unspecified place in unspecified non-institutional (private) residence as the place of occurrence of the external cause
CPT/HCPCS: 2NASP; ERO; 73030-RT; 81003; 93005; 93010; 96372; 96374; 96375; 97116-GO; 97161-GP; 97165-GO; 97530-GO; J1650; J1815; J1885

== ENCOUNTER 2017-10-25 13:48 | Inpatient (IN) | payer OTHER, MEDICARE ==
[~2017-10-25] VITALS: Ht 165.1 cm; Wt 55.8 kg
[~2017-10-25 13:48] MED LIST changes: +LEVEMIR100 UNIT/1 SC; +NOVOLOG MI100 UNIT/2 SC; +NOVOLOG100 UNIT/2 SC
--- NOTE | 2017-10-25 14:02 | ED INFLUENZA/URI COMPLAINT ---
History of Present Illness General Chief Complaint: Upper Respiratory Sx/Fever Stated Complaint: URI Source: patient Exam Limitations: no limitations Vital Signs & Intake/Output Vital Signs & Intake/Output Vital Signs Date Time Temp Pulse Resp B/P B/P Pulse O2 O2 Flow FiO2 Mean Ox Delivery Rate 10/26 0800 95 Room Air Room Air 10/26 0554 97.8 61 20 148/64 93 Room Air 10/26 0000 95 Room Air 10/25 2238 98.2 73 20 110/60 93 Room Air 10/25 1835 97.8 84 18 138/66 96 Room Air 10/25 1825 95 Room Air 10/25 1806 98.6 76 18 146/84 98 Room Air 10/25 1610 97.7 77 18 155/70 95 Room Air 10/25 1556 92 10/25 1441 94 Room Air 10/25 1352 97.2 81 15 138/79 93 Room Air Room Air ED Intake and Output 10/26 0000 10/25 1200 Intake Total 240 Output Total Balance 240 Intake, Oral 240 Patient 123 lb Weight Weight Reported by Patient Measurement Method Allergies Coded Allergies: No Known Allergies (10/25/17) Reconcile Medications Azithromycin (Zithromax) 250 MG TABLET 1 DP PO AD ANTIBIOTIC (Reported) 2 the first day followed by 1 for days 2-5 Insulin Aspart (Novolog) 100 UNIT/ML VIAL 0 UNITS SC TIDAC/HS DM 80-150 3units 151-200 4 units 201-250 5 units 251-300 6 units 301-350 7 units 351-400 8 units 401-450 9 units AT bedtime 251-300 2 units 301-350 3 units 351-400 4 units 401-450 5 units Insulin Detemir (Levemir) 100 UNIT/ML VIAL 8 UNITS SC DAILY DM Triage Note: PT TO ED WITH DAUGHTER FOR C/C OF PRODUCTIVE COUGH AND CONGESTION SINCE THURSDAY. PT SAW PRIMARY CARE AND HAD NEGATIVE FLU SWAB. STARTED ON ZPACK AND TODAY FEELS WEAK AND SLEEPY AND NOT EATING A LOT. Triage Nurses Notes Reviewed? yes Onset: Gradual Duration: constant Timing: recent history Severity: moderate Severity Numbers: 5 HPI: Patient is a 87-year-old female with past medical history of type 2 diabetes who presents emergency room stating that 5 days ago on Thursday patient began having a white productive cough nasal congestion head congestion and generalized weakness and fatigue patient had episodes of vomiting that day, patient followed up primary care doctor, DR PARISI following day C blood work and was given azithromycin prescription where patient presented today feeling no better patient's had decreased by mouth intake and low-grade fevers Positive sick contacts at home Denies any headache sore throat ear pain shortness of breath chest pain arm pain jaw pain current nausea or vomiting leg swelling (Jerry Seymour) Past History Travel History Traveled to [place] past 21 day No Medical History Any Pertinent Medical History? 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 No (Jerry Seymour) Review of Systems Review of Systems Constitutional: Reports: see HPI, malaise, weakness. EENTM: Reports: see HPI. Respiratory: Reports: see HPI, cough. Cardiovascular: Reports: no symptoms. GI: Reports: see HPI. Genitourinary: Reports: no symptoms. Musculoskeletal: Reports: no symptoms. Skin: Reports: no symptoms. Neurological/Psychological: Reports: no symptoms. Hematologic/Endocrine: Reports: no symptoms. Immunologic/Allergic: Reports: no symptoms. All Other Systems: Reviewed and Negative (Jerry Seymour) Physical Exam Physical Exam General Appearance: lethargic, thin Head: atraumatic Eyes: Bilateral: normal appearance, PERRL, EOMI. Ears, Nose, Throat: moist mucous membrane, hearing grossly normal, Tympanic normal, pharynx normal, nasal congestion Neck: normal inspection Respiratory: chest non-tender, no respiratory distress Cardiovascular: regular rate/rhythm Peripheral Pulses: 2+ radial (R) Gastrointestinal: normal bowel sounds, soft, non-tender Extremities: normal inspection, normal capillary refill, normal range of motion, no edema Skin: intact, normal color, warm/dry Core Measures Sepsis Present: No Sepsis Focused Exam Completed? No (Jerry Seymour) Progress Differential Diagnosis: influenza, meningitis, neutropenia, otitis, pneumonia, pharyngitis, sinusitis Plan of Care: Orders Procedure Date/time Status Consistent Carbohydrate 3 10/26 B Active Turn and Reposition 10/26 1100 Active Skin Integrity Protocol 10/26 1100 Active Change service to 10/26 0917 Active GLYCOSYLATED HGB 10/26 0600 Complete CBC WITHOUT DIFFERENTIAL 10/26 0600 Complete BASIC ELECTROLYTES PLUS BUN&CR 10/26 0600 Complete PT Evaluate & Treat 10/26 UNK Active PHARMACY COMMUNICATION FORM 10/26 UNK Active Heart Healthy Diet 10/25 D Complete Vital Signs 10/25 1840 Active Teach/Educate 10/25 1840 Active Pain Treatment and Response 10/25 1840 Active Nutritional Intake, Monitor 10/25 1840 Active Isolation 10/25 1840 Active Intake & Output 10/25 1840 Active Patient Care Conference 10/25 1840 Active Activity/Ambulation 10/25 1840 Active TRC EVALUATION (GEN) 10/25 1822 Active Pathway - chart 10/25 1822 Active House Staff 10/25 1822 Active Patient Data 10/25 1624 Active ED Holding Orders 10/25 1602 Active Admit to inpatient 10/25 1602 Active Vital Signs 10/25 1602 Active Code Status 10/25 1602 Active Intake & Output 10/25 1432 Active BLOOD CULTURE 10/25 1404 Active LACTIC ACID 10/25 1404 Complete TROPONIN LEVEL 10/25 1403 Complete COMPREHENSIVE METABOLIC PANEL 10/25 1403 Complete CBC WITHOUT DIFFERENTIAL 10/25 1403 Complete EKG 10/25 1403 Active RAPID VIRAL INFLUENZA A 10/25 1350 Complete VTE Mechanical Prophylaxis 10/25 UNK Active FingerStick- Glucose 10/25 UNK Active Current Medications Sig/Franny Start time Last Medication Dose Stop Time Status Admin Enoxaparin Sodium 40 MG DAILY 10/26 2000 AC (Lovenox) Azithromycin 500 MG DAILY@1600 10/26 1600 CAN (Zithromax) Sodium Chloride 250 ML (Normal Saline 0.9%) Ceftriaxone Sodium 1,000 MG DAILY@1600 10/26 1600 CAN (Rocephin) Guaifenesin 600 MG Q12 10/25 2200 AC 10/26 (Mucinex) 0910 Insulin Aspart 0 AC & AT BEDTIME 10/25 2200 AC 10/26 (NovoLOG) 1306 Insulin Detemir 4 UNITS BID 10/25 2200 AC 10/26 (Levemir) 0910 Enoxaparin Sodium 40 MG DAILY 10/25 1820 AC 10/26 (Lovenox) 1304 Acetaminophen 650 MG Q6P PRN 10/25 1814 AC (Tylenol) Benzonatate 100 MG TID 10/25 1812 AC 10/26 (Tessalon Capsule) 0910 Laboratory Tests 10/26/17 0709: Anion Gap 12, Estimated GFR > 60, BUN/Creatinine Ratio 21.4, Hemoglobin A1c 10.0 H, CBC w Diff NO MAN DIFF REQ, RBC 4.54, MCV 86.4, MCH 28.9, RDW 12.9, MPV 8.8, Gran % 68.1, Lymphocytes % 14.7 L, Monocytes % 15.3 H, Eosinophils % 1.8, Basophils % 0.1, Absolute Granulocytes 4.3, Absolute Lymphocytes 0.9 L, Absolute Monocytes 1.0 H, Absolute Eosinophils 0.1, Absolute Basophils 0, PUBS MCHC 33.4 10/25/17 1704: Lactic Acid Cancelled 10/25/17 1703: Lactic Acid Cancelled 10/25/17 1425: Lactic Acid 1.9 10/25/17 1425: Anion Gap 21 H, Estimated GFR 52 L, BUN/Creatinine Ratio 20.0, Glucose 250 H, Calcium 9.2, Total Bilirubin 0.8, AST 18, ALT 31, Alkaline Phosphatase 73, Troponin I 0.03, Total Protein 7.3, Albumin 3.8, Globulin 3.5, Albumin/Globulin Ratio 1.1, CBC w Diff NO MAN DIFF REQ, RBC 5.08, MCV 86.8, MCH 29.4, RDW 12.7, MPV 8.3, Gran % 74.8, Lymphocytes % 12.3 L, Monocytes % 12.8 H, Eosinophils % 0.1, Basophils % 0, Absolute Granulocytes 5.0, Absolute Lymphocytes 0.8 L, Absolute Monocytes 0.8 H, Absolute Eosinophils 0, Absolute Basophils 0, PUBS MCHC 33.9 Microbiology 10/25 1821 URINE ROUT: Legionella Antigen - CAN Cancelled: SPECIMEN NOT RECEIVED IN LABORATORY 10/25 1821 URINE ROUT: Streptococcus pneumoniae Antigen (M - CAN Cancelled: SPECIMEN NOT RECEIVED IN LABORATORY 10/25 1425 BLOOD: Blood Culture - RES 10/25 1415 BLOOD: Blood Culture - RES 10/25 1403 LOWER RESP: Respiratory Culture - CAN Cancelled: SPECIMEN NOT RECEIVED IN LABORATORY 10/25 1403 LOWER RESP: Gram Stain - CAN Cancelled: SPECIMEN NOT RECEIVED IN LABORATORY 10/25 1400 NASOPHARYN: Influenza Virus A & B Rapid Smear - COMP Patient on initial examination was afebrile in no respiratory distress Chest x-ray and blood work was resulted no acute process discussed results with patient and family members patient on examination does note to be lethargic and fatigued patient required assistance upon ambulation and nursing staff does note the patient's oxygen stat dropped to 88% room air with mild respiratory distress in which patient was now administered nebulizer treatment Patient usually walks with a walker without assistance and has normal steady gait however due to patient's clinical condition and outpatient treatment would be medically harmful due to fall risk Diagnostic Imaging: Viewed by Me: Radiology Read. CXR Impression: no acute abnormality, no infiltrates Initial ED EKG: normal intervals, normal p-waves, normal QRS complex Comments: PATIENT: KATHLEEN HAIRSTON PRESENT AGE: 87 PATIENT ACCOUNT NO: [id number] : 30 LOCATION: [facility] ORDERING PHYSICIAN: Jerry BARKSDALE SERVICE DATE: 10/25/17 EXAM TYPE: RAD - XRY-CHEST XRAY, TWO VIEWS EXAMINATION: XR CHEST CLINICAL INFORMATION: Cough and fever COMPARISON: 10/24/2014 TECHNIQUE: 2 views of the chest were obtained. FINDINGS: Lungs are well expanded. A vague, 1 x 1.3 cm vague opacity projects over the right upper lobe; this is similar appearance compared to 10/24/2014. No acute pulmonary edema, consolidation, pneumothorax or pleural effusion. Cardiac silhouette is normal in size and hilar contours are normal. Bone density is diffusely decreased. There is an old, healed fracture of the right humeral neck. IMPRESSION: 1. No evidence of acute pneumonia or pleural effusion. 2. A vague opacity of the right upper lobe remain similar in appearance compared to 10/24/2014. It is uncertain whether this represents focal fibrosis or a low-grade neoplastic nodule. DICTATED BY: Jose Medina MD (Olena BARKSDALE,Jerry) Departure Departure Disposition: STILL A PATIENT Condition: Stable Clinical Impression Primary Impression: Bronchitis Secondary Impressions: Dyspnea on exertion, Weakness Referrals: Dey MD,Jt A. (PCP/Family) Departure Forms: Customer Survey General Discharge Information Admission Note Spoke With: Maya ZAMORA,Caren Documentation of Exam: Documentation of any treatments & extenuating circumstances including Concerns Regarding Discharge (functional status, medication knowledge or non-compliance, living conditions, etc.) that warrant an admission rather than observation: [ Patient requires general medicine admission requires IV antibiotics and IV fluids dietary consultation and pulmonary consultation physical therapy consultation repeat labs] (Olena BARKSDALE,Jerry) Resident Co-Sign Statement Statement: ED Attending supervision documentation- [X] I saw and evaluated the patient. I have also reviewed all the pertinent lab results and diagnostic results. I agree with the findings and the plan of care as documented in the Resident's documentation. [X] I have reviewed the ED Record and agree with the Resident's documentation. [] Additions or exceptions (if any) to the Resident's note and plan are summarized below: [] (Briseida ZAMORA,Katerine)
[2017-10-25 14:38] LABS: ABSOLUTE BASOPHIL COUNT 0 /CUMM (0.0-0.2); ABSOLUTE EOSINOPHIL COUNT 0 /CUMM (0.0-0.7); ABSOLUTE LYMPH COUNT 0.8 /CUMM (1.2-3.4); ABSOLUTE MONOCYTE COUNT 0.8 /CUMM (0.10-0.60); BASOPHIL % 0 % (0.0-2.0); EOSINOPHIL % 0.1 % (0-5); GRANULOCYTE % 74.8 % (42.2-75.2); HEMATOCRIT 44.1 % (37-47); MEAN CORPUSCULAR HGB 29.4 PG (27.0-31.0); MEAN CORPUSCULAR HGB CONC 33.9 G/DL (33.0-37.0); MEAN CORPUSCULAR VOLUME 86.8 FL (81.0-99.0); MEAN PLATELET VOLUME 8.3 FL (7.4-10.4); PLATELET COUNT 245 /CUMM (130-400); RBC DISTRIBUTION WIDTH 12.7 % (11.5-14.5); RED BLOOD CELL CT 5.08 /CUMM (4.20-5.40); WHITE BLOOD CELL COUNT 6.6 /CUMM (4.8-10.8)
[2017-10-25] MEDS ORDERED: ZITHROMAX250 M2 PO (14:47)
--- NOTE | 2017-10-25 14:51 | RADIOLOGY REPORT ---
EXAMINATION: XR CHEST CLINICAL INFORMATION: Cough and fever COMPARISON: 10/24/2014 TECHNIQUE: 2 views of the chest were obtained. FINDINGS: Lungs are well expanded. A vague, 1 x 1.3 cm vague opacity projects over the right upper lobe; this is similar appearance compared to 10/24/2014. No acute pulmonary edema, consolidation, pneumothorax or pleural effusion. Cardiac silhouette is normal in size and hilar contours are normal. Bone density is diffusely decreased. There is an old, healed fracture of the right humeral neck. IMPRESSION: 1. No evidence of acute pneumonia or pleural effusion. 2. A vague opacity of the right upper lobe remain similar in appearance compared to 10/24/2014. It is uncertain whether this represents focal fibrosis or a low-grade neoplastic nodule.
--- NOTE | 2017-10-25 16:49 | History & Physical ---
Carlos ZAMORA,Loretto 10/25/17 4078: General Information and HPI MD Statement: I have seen and personally examined KATHLEEN HAIRSTON and documented this H&P. The patient is a 87 year old F who presented with a patient stated chief complaint of [SOB]. Source of Information: patient Exam Limitations: poor historian History of Present Illness: 87-year-old female with past medical history of type 2 diabetes who presents emergency room with complaints of a white productive cough with nasal congestion congestion, vomiting, generalized weakness and fatigue x 5 days. She was given oral azithromycin prescription which did not help much as she continued to get worse, developing low-grade fevers and poor PO intake. She does not report positive sick contacts and denies any headache, sore throat, ear pain, shortness of breath or chest pain. Pt is a poor historian. Allergies/Medications Allergies: Coded Allergies: No Known Allergies (10/25/17) Home Med list Azithromycin (Zithromax) 250 MG TABLET 1 DP PO AD ANTIBIOTIC (Reported) 2 the first day followed by 1 for days 2-5 Insulin Aspart (Novolog) 100 UNIT/ML VIAL 0 UNITS SC TIDAC/HS DM 80-150 3units 151-200 4 units 201-250 5 units 251-300 6 units 301-350 7 units 351-400 8 units 401-450 9 units AT bedtime 251-300 2 units 301-350 3 units 351-400 4 units 401-450 5 units Insulin Detemir (Levemir) 100 UNIT/ML VIAL 8 UNITS SC DAILY DM Past History Travel History Traveled to [place] past 21 day No Medical History Neurological: NONE EENT: NONE Cardiovascular: NONE Respiratory: NONE Gastrointestinal: NONE Hepatic: NONE Renal: NONE Musculoskeletal: BROKEN R ARM Psychiatric: NONE Endocrine: diabetes Blood Disorders: NONE Cancer(s): 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 self Services at Home: None ETOH Use: denies use Illicit Drug Use: denies illicit drug use Review of Systems Review of Systems Constitutional: Reports: see HPI. Respiratory: Reports: see HPI. Exam & Diagnostic Data Last 24 Hrs of Vital Signs/I&O Vital Signs Date Time Temp Pulse Resp B/P B/P Pulse O2 O2 Flow FiO2 Mean Ox Delivery Rate 10/25 1806 98.6 76 18 146/84 98 Room Air 10/25 1610 97.7 77 18 155/70 95 Room Air 10/25 1556 92 10/25 1441 94 Room Air 10/25 1352 97.2 81 15 138/79 93 Room Air Room Air Intake & Output 10/25 1600 10/25 0800 10/25 0000 Intake Total 0 Output Total Balance 0 Intake, Oral 0 Patient 123 lb Weight Weight Reported by Patient Measurement Method Physical Exam General Appearance Alert, Oriented X3, Cooperative, No Acute Distress Skin No Significant Lesion Skin Temp/Moisture Exam: Warm/Dry Sepsis Skin Exam (color): Normal for Ethnicity HEENT PERRLA, EOMI, Mucous Membr. moist/pink Cardiovascular Regular Rate, Normal S1, Normal S2 Lungs crackles on Rt lower base Abdomen Normal Bowel Sounds, Soft, No Tenderness Extremities No Edema, Normal Pulses Last 24 Hrs of Labs/Fareed: Laboratory Tests 10/25/17 1704: Lactic Acid Cancelled 10/25/17 1703: Lactic Acid Cancelled 10/25/17 1425: Lactic Acid 1.9 10/25/17 1425: Anion Gap 21 H, Estimated GFR 52 L, BUN/Creatinine Ratio 20.0, Glucose 250 H, Calcium 9.2, Total Bilirubin 0.8, AST 18, ALT 31, Alkaline Phosphatase 73, Troponin I 0.03, Total Protein 7.3, Albumin 3.8, Globulin 3.5, Albumin/Globulin Ratio 1.1, CBC w Diff NO MAN DIFF REQ, RBC 5.08, MCV 86.8, MCH 29.4, RDW 12.7, MPV 8.3, Gran % 74.8, Lymphocytes % 12.3 L, Monocytes % 12.8 H, Eosinophils % 0.1, Basophils % 0, Absolute Granulocytes 5.0, Absolute Lymphocytes 0.8 L, Absolute Monocytes 0.8 H, Absolute Eosinophils 0, Absolute Basophils 0, PUBS MCHC 33.9 Microbiology 10/25 1821 URINE ROUT: Legionella Antigen - ORD 10/25 1821 URINE ROUT: Streptococcus pneumoniae Antigen (M - ORD 10/25 1425 BLOOD: Blood Culture - RECD 10/25 1415 BLOOD: Blood Culture - RECD 10/25 1403 LOWER RESP: Respiratory Culture - COLB 10/25 1403 LOWER RESP: Gram Stain - COLB 10/25 1400 NASOPHARYN: Influenza Virus A & B Rapid Smear - COMP Diagnostic Data EKG Results SR 76, left atrial abnormality CXR Results 1. No evidence of acute pneumonia or pleural effusion. 2. A vague opacity of the right upper lobe remain similar in appearance compared to 10/24/2014. It is uncertain whether this represents focal fibrosis or a low-grade neoplastic nodule. Assessment/Plan Assessment: 87-year-old female with past medical history of insulin dependent type 2 DM who presents with complaints of a white productive cough with nasal congestion congestion, vomiting, generalized weakness and fatigue x 5 days. Assessment 1. Possible Viral Bronchitis 2. Type 2 DM Plan -Admit to -Watch off antibiotics for now; she received 1 dose of IV ceftriaxone and azithromycin in the ED -f/u blood cultures x 2 -f/u sputum culture -Check Urine strept and Legionella Ags -If Hypoxia, she may benefit from CTA to r/o PE -Resume her home insulin SS and levemir -Mucinex and tessalon perls -TRC eval -Diabetic diet -DVT ppx-SC lovenox -FC As Ranked By This Provider Problem List: 1. Bronchitis Core Measures/Misc (06/28) Acute Coronary Syndrome ACS Diagnosis: No Congestive Heart Failure Congestive Heart Failure Diagnosis No Cerebrovascular Accident CVA/TIA Diagnosis: No VTE (View Protocol) VTE Risk Factors Acute Medical Illness No Mechanical VTE Prophylaxis d/t N/A MechProphylax Ordered No VTE Pharm Prophylaxis d/t NA PharmProphylax ordered Sepsis (View protocol) Sepsis Present: No Resident Review Statement Resident Statement: examined this patient Other Findings: see HPI Maya ZAMORA,Caren 10/25/172118: Attending MD Review Statement Attending Statement Attending MD Statement: examined this patient, discuss w/resident/PA/SAVE ALL OPERATOR, agreed w/resident/PA/SAVE ALL OPERATOR, discussed with family, reviewed EMR data (avail), discussed with nursing, amended to note Attending Assessment/Plan: Patient is a pleasant 87-year-old female with history of insulin-dependent diabetes mellitus brought in by family to emergency room with complaints of malaise that have been going on for the past 3-4 days. She saw her primary care provider as an outpatient on started on azithromycin for the past 3 days with no improvement in symptoms. She reports that her son who resides with her has been sick for the past few weeks with respiratory infection. She denies any other sick contacts. She denies recent travel. She denies aspiration with meals. She tested negative for the flu about her primary care provider's office and again in the emergency room today. She denies similar complaints in the past. In emergency room she was found to be very lethargic and desaturated down to 80% on room air when ambulating. She is afebrile with no leukocytosis. Chest x-ray shows no acute pathology. She has an unchanged opacity in the right upper lobe present since 2014. She has an anion gap acidosis with a normal lactic acid level. This is likely secondary to starvation ketosis as family reports very poor oral intake in the past few days. On examination she was an elderly lady looking fatigued but not in any acute distress. No use of accessory muscles. Lungs are clear to auscultation bilaterally. Abdomen is soft and nontender and she has no peripheral edema. She has no rashes. Recommendations: -Admit to the inpatient general medical service. -Her hypoxia with ambulation requires further workup. Recommend CT angiogram to rule out pulmonary embolism and further evaluate pulmonary parenchyma particularly her chronic right upper lobe opacity. -Hold off antibiotic therapy for now as she has no clear evidence of a bacterial infection. -Follow up claudio-cultures -Hydrate gently with intravenous fluids. Half normal saline at 60 mL an hour for 1 L. -Resume her home insulin regimen. -Physical therapy evaluation for safe discharge planning.
[2017-10-25 18:35] VITALS: BP 138/66
[2017-10-25 22:38] VITALS: BP 110/60
[2017-10-26 05:54] VITALS: BP 148/64
--- NOTE | 2017-10-26 07:59 | PN- Housestaff ---
Daphne Tran 10/26/17 0758: Subjective Follow-up For: Viral Bronchitis/Pneumonia? T2DM Subjective: Pt was sleeping. Review of Systems Constitutional: Reports: see HPI. Objective Last 24 Hrs of Vital Signs/I&O Vital Signs Date Time Temp Pulse Resp B/P B/P Pulse O2 O2 Flow FiO2 Mean Ox Delivery Rate 10/26 0554 97.8 61 20 148/64 93 Room Air 10/26 0000 95 Room Air 10/25 2238 98.2 73 20 110/60 93 Room Air 10/25 1835 97.8 84 18 138/66 96 Room Air 10/25 1825 95 Room Air 10/25 1806 98.6 76 18 146/84 98 Room Air 10/25 1610 97.7 77 18 155/70 95 Room Air 10/25 1556 92 10/25 1441 94 Room Air 10/25 1352 97.2 81 15 138/79 93 Room Air Room Air Intake & Output 10/26 0800 10/26 0000 10/25 1600 Intake Total 240 240 0 Output Total 1 Balance 239 240 0 Intake, Oral 240 240 0 Number 1 Bowel Movements Output, Stool 1 Patient 55.792 kg 55.792 kg Weight Weight Reported by Patient Reported by Patient Measurement Method Physical Exam General Appearance: Pt was sleeping Cardiovascular: Regular Rate Lungs: Normal Air Movement, Mild rhonchi but no wheezing auscultated Current Medications: Current Medications Sig/Franny Start time Last Medication Dose Route Stop Time Status Admin Acetaminophen 650 MG Q6P PRN 10/25 1814 AC PO Albuterol Sulfate 3 ML ONCE ONE 10/25 1545 DC 10/25 INH 10/25 1546 1555 Albuterol Sulfate 3 ML ONCE ONE 10/25 1545 DC INH 10/25 1546 Azithromycin 500 MG DAILY@10/26 1600 CAN Sodium Chloride 250 ML IV Azithromycin 500 MG ONCE ONE 10/25 1545 DC 10/25 Sodium Chloride 250 ML IV 10/25 1644 1610 Benzonatate 100 MG TID 10/25 181 AC 10/25 PO 2131 Ceftriaxone Sodium 1,000 MG DAILY@1600 10/26 1600 CAN IV Ceftriaxone Sodium 0 .STK-MED ONE 10/25 1551 DC .ROUTE Ceftriaxone Sodium 1,000 MG ONCE ONE 10/25 1545 DC 10/25 IV 10/25 1546 1559 Enoxaparin Sodium 40 MG DAILY 10/25 1821 AC 10/25 SC 1949 Guaifenesin 600 MG Q12 10/250 AC 10/25 PO 2131 Guaifenesin 600 MG ONCE ONE 10/25 1600 DC 10/25 PO 10/25 1601 1610 Insulin Aspart 0 AC & AT BEDTIME 10/250 AC 10/25 SC 2131 Insulin Detemir 4 UNITS BID 10/25 2199 AC 10/25 SC 2131 Ipratropium [place] 2.5 ML ONCE ONE 10/25 1745 DC INH 10/25 1746 Sodium Chloride 1,000 ML BOLUS ONE 10/25 1600 DC 10/25 IV 10/25 1759 1723 Sodium Chloride 1,000 ML BOLUS ONE 10/25 1430 DC 10/25 IV 10/25 1629 1440 Last 24 Hrs of Lab/Fareed Results Last 24 Hrs of Labs/Mics: Laboratory Tests 10/26/17 0709: Sodium Pending, Potassium Pending, Chloride Pending, Carbon Dioxide Pending, Anion Gap Pending, BUN Pending, Creatinine Pending, BUN/Creatinine Ratio Pending , Hemoglobin A1c Pending, CBC w Diff Pending, WBC Pending, RBC Pending, Hgb Pending, Hct Pending, MCV Pending, MCH Pending, RDW Pending, Plt Count Pending, MPV Pending, PUBS MCHC Pending 10/25/17 1704: Lactic Acid Cancelled 10/25/17 1703: Lactic Acid Cancelled 10/25/17 1425: Lactic Acid 1.9 10/25/17 1425: Anion Gap 21 H, Estimated GFR 52 L, BUN/Creatinine Ratio 20.0, Glucose 250 H, Calcium 9.2, Total Bilirubin 0.8, AST 18, ALT 31, Alkaline Phosphatase 73, Troponin I 0.03, Total Protein 7.3, Albumin 3.8, Globulin 3.5, Albumin/Globulin Ratio 1.1, CBC w Diff NO MAN DIFF REQ, RBC 5.08, MCV 86.8, MCH 29.4, RDW 12.7, MPV 8.3, Gran % 74.8, Lymphocytes % 12.3 L, Monocytes % 12.8 H, Eosinophils % 0.1, Basophils % 0, Absolute Granulocytes 5.0, Absolute Lymphocytes 0.8 L, Absolute Monocytes 0.8 H, Absolute Eosinophils 0, Absolute Basophils 0, PUBS MCHC 33.9 Microbiology 10/25 1822 URINE ROUT: Legionella Antigen - COLB 10/25 1822 URINE ROUT: Streptococcus pneumoniae Antigen (M - COLB 10/25 1425 BLOOD: Blood Culture - RECD 10/25 1415 BLOOD: Blood Culture - RECD 10/25 1403 LOWER RESP: Respiratory Culture - COLB 10/25 1403 LOWER RESP: Gram Stain - COLB 10/25 1400 NASOPHARYN: Influenza Virus A & B Rapid Smear - COMP Assessment/Plan Assessment: 87-year-old female with past medical history of insulin dependent type 2 DM who presents with complaints of a white productive cough with nasal congestion congestion, vomiting, generalized weakness and fatigue x 5 days. Assessment 1. Possible Viral Bronchitis 2. Type 2 DM Plan -Watch off antibiotics for now; she received 1 dose of IV ceftriaxone and azithromycin in the ED. Patient remained afebrile and aleukocytosis without any signs of infection. CTA chest ruled out PE and had no consolidation resembling pneumonia. -f/u blood cultures x 2 and sputum culture. No growth so far. -Urine strept and Legionella Ags pending -Resumed her home insulin SS and levemir -Mucinex and tessalon perls -TRC eval Diabetic diet DVT ppx-SC lovenox FC Problem List: 1. Bronchitis Pain Ratin Pain Location: NA Pain Goal: Remain pain free Pain Plan: see AP Tomorrow's Labs & Rationales: CBC/BEP Rodrick Woodard 10/26/17 1416: Attending MD Review Statement Attending Statement Attending MD Statement: examined this patient, discuss w/resident/PA/WET MIX OPERATOR, agreed w/resident/PA/WET MIX OPERATOR, discussed with family, reviewed EMR data (avail), discussed with nursing, discussed with case mgmt, reviewed images, amended to note Attending Assessment/Plan: Patient seen/examined bedside. Patient denies any new complaints. Awaiting CTA chest for hypoxia under investigation. PT eval for safe dc planning.
[2017-10-26 08:44] LABS: ABSOLUTE BASOPHIL COUNT 0 /CUMM (0.0-0.2); ABSOLUTE EOSINOPHIL COUNT 0.1 /CUMM (0.0-0.7); ABSOLUTE GRANULOCYTE CT 4.3 /CUMM (1.4-6.5); ABSOLUTE LYMPH COUNT 0.9 /CUMM (1.2-3.4); BASOPHIL % 0.1 % (0.0-2.0); EOSINOPHIL % 1.8 % (0-5); GRANULOCYTE % 68.1 % (42.2-75.2); HEMATOCRIT 39.2 % (37-47); MEAN CORPUSCULAR HGB 28.9 PG (27.0-31.0); MEAN CORPUSCULAR HGB CONC 33.4 G/DL (33.0-37.0); MEAN CORPUSCULAR VOLUME 86.4 FL (81.0-99.0); MEAN PLATELET VOLUME 8.8 FL (7.4-10.4); PLATELET COUNT 223 /CUMM (130-400); RBC DISTRIBUTION WIDTH 12.9 % (11.5-14.5); RED BLOOD CELL CT 4.54 /CUMM (4.20-5.40); WHITE BLOOD CELL COUNT 6.3 /CUMM (4.8-10.8)
--- NOTE | 2017-10-26 11:54 | CT SCAN REPORT ---
EXAMINATION: CT ANGIOGRAM OF THE CHEST WITH AND WITHOUT CONTRAST (CT PULMONARY ANGIOGRAM FOR PE) CLINICAL INFORMATION: Shortness of breath. Evaluate for pulmonary embolism. COMPARISON: Chest x-ray 10/25/2017. TECHNIQUE: Prior to contrast administration, noncontrast localization images were obtained. Subsequently, multidetector volumetric imaging was performed from the thoracic inlet to below the diaphragms following the administration of 95 mL Optiray 350 intravenous contrast. No contrast reaction reported. Sagittal, coronal, and MIP oblique sagittal reformatted images were obtained on the CT workstation, uploaded to PACS, and reviewed. Total exam dose-length product 311.78 mGy-cm. FINDINGS: QUALITY OF STUDY/CONTRAST BOLUS: Satisfactory. PULMONARY ARTERIES: No central or segmental pulmonary emboli. THORACIC AORTA: No aneurysm or dissection. LUNG: There is a pleural-based spiculated nodular opacity in the anterior right apex measuring 0.9 x 1.2 x 1.3 cm. There is an irregular pleural-based somewhat nodular opacity with irregular margins in the right upper lobe posterior laterally measuring 1.4 x 1.7 x 1.7 cm. There is mild dependent atelectasis or scarring in both lower lobes. PLEURA: No pleural effusion or pneumothorax. MEDIASTINUM: There are 2 borderline upper mediastinal paratracheal lymph nodes. There is otherwise no apparent mediastinal adenopathy. No evidence of septal bowing or right heart strain. CHEST WALL/AXILLA: There is no axillary adenopathy. There is a midline skin/subcutaneous cystic lesion anterior to the sternum measuring 4.3 x 3.1 x 2.5 cm. There is a mildly irregular slightly thickened wall. There is a small amount of air in the anterior aspect of the lesion which may be associated with subtle perforations of the skin. OSSEOUS STRUCTURES: No acute or suspicious osseous abnormality. UPPER ABDOMEN: There are probable numerous noncalcified gallstones in the gallbladder. The upper abdominal structures are otherwise unremarkable. No reflux of contrast into the hepatic veins to suggest elevated right heart pressures. IMPRESSION: No evidence of pulmonary emboli. Pleural-based spiculated nodular opacities in the right upper lobe (anterior right apex, posterolateral right upper lobe, measuring 1.3 and 1.7 cm in maximum dimension, respectively. These may represent areas of atelectasis, scarring, or inflammatory processes. Neoplasm is difficult to entirely exclude. If further evaluation is desired, consider PET CT scanning. There are 2 borderline upper mediastinal lymph nodes which are nonspecific. Somewhat complex cystic lesion in the cutaneous/subcutaneous tissues anterior to the sternum. Small amount of air in the lesion suggests communication through the skin. The etiology of this lesion is uncertain. A sebaceous cyst may be considered. Cholelithiasis. VTE: NEGATIVE.
--- NOTE | 2017-10-26 13:39 | Patient Discharge Instructions ---
Discharge Instructions General Discharge Information You were seen/treated for: Viral Bronchitis T2DM You had these procedures: none Special Instructions: - Please follow up with your PCP within 1-2 week of discharge. - please follow up with in 2 weeks - Please follow up regarding right upper lobe nodule in 2 weeks. - Please watch for these problems: Fever, Chills, Nausea, Vomiting, Shortness of Breath, Productive Cough, Chest Pain/Discomfor. Diet Continue normal diet: Yes Activity Full Activity/No Limits: Yes Acute Coronary Syndrome Inclusion Criteria At DC or during hospital stay patient has or had the following: ACS DIAGNOSIS No Discharge Core Measures Meds if any: Prescribed or Continued at Discharge Meds if any: NOT Prescribed or Continued at Discharge Congestive Heart Failure Inclusion Criteria At DC or during hospital stay patient has or had the following: CHF DIAGNOSIS No Discharge Core Measures Meds if any: Prescribed or Continued at Discharge Meds if any: NOT Prescribed or Continued at Discharge Cerebrovascular accident Inclusion Criteria At DC or during hospital stay patient has or had the following: CVA/TIA Diagnosis No Discharge Core Measures Meds if any: Prescribed or Continued at Discharge Meds if any: NOT Prescribed or Continued at Discharge Venous thromboembolism Inclusion Criteria VTE Diagnosis No VTE Type NONE VTE Confirmed by (Test) NONE Discharge Core Measures - Per Current guidelines, there needs to be overlap - treatment for the first 5 days of Warfarin therapy. - If discharged on Warfarin prior to 5 days of - overlap therapy, the patient will need to be - assessed for post discharge needs including - *Post discharge parental anticoagulation - *Warfarin and/or parental anticoagulation education - *Follow up date to check INR post discharge At least 5 days overlap therapy as Inpatient No Meds if any: Prescribed or Continued at Discharge Note: Overlap Therapy is Warfarin and Anticoagulant Meds if any: NOT Prescribed or Continued at Discharge
[2017-10-26 14:15] VITALS: BP 112/68
[2017-10-26 21:17] VITALS: BP 148/68
[2017-10-27 07:06] VITALS: BP 136/62
--- NOTE | 2017-10-27 07:38 | Discharge Summary ---
Visit Information Visit Dates Admission Date: 10/25/17 Discharge Date: 10/28/17 Hospital Course Course Attending Physician: Rodrick Woodard MD Primary Care Physician: Nia ZAMORA,Jt Romeo Hospital Course: 87-year-old female with past medical history of type 2 diabetes who presents emergency room with complaints of a white productive cough with nasal congestion congestion, vomiting, generalized weakness and fatigue x 5 days. She was given oral azithromycin prescription which did not help much as she continued to get worse, developing low-grade fevers and poor PO intake. She does not report positive sick contacts and denies any headache, sore throat, ear pain, shortness of breath or chest pain. At admission sh was afebrile with no leukocytosis. Chest x-ray shows no acute pathology. She has an unchanged opacity in the right upper lobe present since 2014. She has an anion gap acidosis with a normal lactic acid level. This is likely secondary to starvation ketosis as family reports very poor oral intake in the past few days. On examination - fatigued but not in any acute distress. No use of accessory muscles. Lungs are clear to auscultation bilaterally. Abdomen is soft and nontender and she has no peripheral edema. She has no rashes. Patient had CTA to r/o PE, which showed Rt upper lobe pleural based nodule with a broad diff including malignancy ( exsmoker), pulmonology consult was placed with Dr. Craig, who recommended to treat her with PO Ceftin for possible resolving pneumonia to a total course of 7days, he also recommend a pet /ct in 4 weeks, Needs follow up appt in office in 2 weeks, prn albuterol. Her blood sugar is not well controlled, HBA1C found to be 10, endocrinology consult placed with who made some adjustment of her insulin sliding scale. PT recommended STR Complications: None Allergies: Coded Allergies: No Known Allergies (10/25/17) Significant Procedures: CXR on 10/25/17 IMPRESSION: No acute findings of the abdomen or pelvis. No inflammatory changes. Diverticulosis without diverticulitis. Bilateral lower lobe pulmonary opacities are nonspecific. Considerations include alveolar edema versus multifocal pneumonia. CT angio on 10/26/16 IMPRESSION: No evidence of pulmonary emboli. Pleural-based spiculated nodular opacities in the right upper lobe (anterior right apex, posterolateral right upper lobe, measuring 1.3 and 1.7 cm in maximum dimension, respectively. These may represent areas of atelectasis, scarring, or inflammatory processes. Neoplasm is difficult to entirely exclude. If further evaluation is desired, consider PET CT scanning. There are 2 borderline upper mediastinal lymph nodes which are nonspecific. Somewhat complex cystic lesion in the cutaneous/subcutaneous tissues anterior to the sternum. Small amount of air in the lesion suggests communication through the skin. The etiology of this lesion is uncertain. A sebaceous cyst may be considered. Cholelithiasis. VTE: NEGATIVE. Pertinent Lab Results: as above Disposition Summary Disposition Principal Diagnosis: Bronchitis and rule out resolving pna Rt upper lobe pleural based nodule with a broad diff including malignancy ( exsmoker) Additional Diagnosis: DM on insulin Diabetic neuropathy sebaceous cyst anteroior to sternum Discharge Disposition: SNF Discharge Instructions General Discharge Information Code Status: Full Code Patient's Diet: diabetic diet Patient's Activity: as tolerated Follow-Up Instructions/Appts: Please follow up with Dr. Craig in 2 weeks. Please follow up with PCP in a week Please follow up regarding outpatient PET scan in 2 weeks with . Medications at Discharge Discharge Medications: Stop taking the following medications: Azithromycin (Zithromax) 250 MG TABLET ORAL As Directed Continue taking these medications: Insulin Aspart (Novolog) 100 UNIT/ML VIAL 0 Units Inject into fatty tissue BEFORE MEALS AND AT BEDTIME Qty = 10 Instructions: 80-150 3units 151-200 4 units 201-250 5 units 251-300 6 units 301-350 7 units 351-400 8 units 401-450 9 units AT bedtime 251-300 2 units 301-350 3 units 351-400 4 units 401-450 5 units Comments: Last Taken: 10/28/17 Time: 1235 Insulin Detemir (Levemir) 100 UNIT/ML VIAL 8 Units Inject into fatty tissue DAILY Qty = 10 Comments: Last Taken: 10/28/17 Time: 0912 AM Start taking the following new medications: Cefuroxime Axetil (Cefuroxime) 250 MG TABLET 250 Milligram ORAL EVERY 12 HOURS Qty = 11 No Refills Comments: Last Taken: 10/28/17 Time: 0912 AM Copies To: Nia ZAMORA,Jt Romeo; Rafa ZAMORA,Harry Alfonso Attending MD Review Statement Documenting Attending: Rodrick Woodard MD Other Findings: Patient seen/examined bedside. Patient denies any new complaints. F/u CTA chest revealed RUL nodule spiculated r/o malignancy in former smoker, negative for PE, pulmonary consulted and recommend outpatient w/u with repeat CT/PET in 4 weeks. Patient found to have uncontrolled Diabetes Mellitus with hyperglycemia. Patient is on insulin therapy and follow Dr Diamond as endocrinology outpatient. Informed endocrinology. PT eval for safe dc planning recommend STR. [facility] Endocrinology Pulmonary FOLLOW UP Dr Diamond in [address] Craig Pulmonary in 2 weeks of discharge
--- NOTE | 2017-10-27 13:01 | PN- Housestaff ---
Braeden ZAMORA,Luly 10/27/17 1300: Subjective Follow-up For: Viral Bronchitis/Pneumonia? T2DM Subjective: patient not feeling well, has lower abd pain. last bowel movement yesteday. not onoxygen. no cp or sob. Review of Systems Constitutional: Reports: weakness. Gastrointestinal: Reports: abdominal pain. Objective Last 24 Hrs of Vital Signs/I&O Vital Signs Date Time Temp Pulse Resp B/P B/P Pulse O2 O2 Flow FiO2 Mean Ox Delivery Rate 10/27 1519 Room Air Room Air 10/27 1518 98.4 65 20 100/63 93 Room Air 10/27 0800 Room Air Room Air 10/27 0706 98.0 58 18 136/62 93 10/27 0000 Room Air 10/26 2117 98.2 60 18 148/68 93 Room Air Intake & Output 10/27 1600 10/27 0800 10/27 0000 Intake Total 900 120 720 Output Total 300 Balance 900 120 420 Intake, IV 0 Intake, Oral 900 120 720 Number 0 Bowel Movements Output, Urine 300 Physical Exam General Appearance: Alert, Oriented X3, Cooperative, No Acute Distress Skin: No Rashes, No Breakdown Cardiovascular: Regular Rate, Normal S1, Normal S2, No Murmurs Lungs: Clear to Auscultation, Normal Air Movement Abdomen: Normal Bowel Sounds, Soft, No Hepatospenomegaly, No Masses Current Medications: Current Medications Sig/Franny Start time Last Medication Dose Route Stop Time Status Admin Acetaminophen 650 MG Q6P PRN 10/25 1815 AC PO Benzonatate 100 MG TID 10/25 181 AC 10/27 PO 1630 Cefuroxime Sodium 250 MG Q12 10/27 1007 AC 10/27 PO 1358 Enoxaparin Sodium 40 MG DAILY 10/26 1999 AC 10/27 IA 0853 Guaifenesin 600 MG Q12 10/25 2199 AC 10/27 PO 0853 Insulin Aspart 0 AC & AT BEDTIME 10/25 2199 10/27 SC 1630 Insulin Detemir 4 UNITS BID 10/25 2199 10/27 IA 0854 Assessment/Plan Assessment: 87-year-old female with past medical history of insulin dependent type 2 DM who presents with complaints of a white productive cough with nasal congestion congestion, vomiting, generalized weakness and fatigue x 5 days. Assessment 1. Possible Viral Bronchitis 2. Type 2 DM Plan -ceftin 250 po bid day one Patient remained afebrile and aleukocytosis without any signs of infection. CTA chest ruled out PE and had no consolidation resembling pneumonia. there was a "nodule" which pulm thinks is round atelectasis, more infection than malignancy. -f/u blood cultures x 2 and sputum culture. No growth so far. -Urine strept and Legionella Ags pending -Resumed her home insulin SS and levemir -Mucinex and tessalon perls -TRC eval hyperglycemia to 219 today. endo consult placed, hbaic 10 ]needs 3 day stay for str Diabetic diet DVT ppx-SC lovenox FC Problem List: 1. Dyspnea on exertion 2. Bronchitis Pain Ratin Pain Location: abd Pain Goal: Pain 4 or less Pain Plan: as needed Tomorrow's Labs & Rationales: cbc bep YamiletRodrick paz 10/27/17 1342: Attending MD Review Statement Attending Statement Attending MD Statement: examined this patient, discuss w/resident/PA/SOLDERING MACHINE OPERATOR, agreed w/resident/PA/SOLDERING MACHINE OPERATOR, discussed with family, reviewed EMR data (avail), discussed with nursing, discussed with case mgmt, reviewed images, amended to note Attending Assessment/Plan: Patient seen/examined bedside. Patient denies any new complaints. F/u CTA chest revealed RUL nodule spiculated r/o malignancy in former smoker, negative for PE, pulmonary consulted. Patient found to have uncontrolled Diabetes Mellitus with hyperglycemia. Patient is on insulin therapy and follow Dr Diamond as endocrinology outpatient. Inform endocrinology. PT eval for safe dc planning recommend STR. Update family.
--- NOTE | 2017-10-27 13:55 | Cons- Pulmonary ---
General Information and HPI Consulting Request Date of Consult: 10/27/17 Requested By: med team History of Present Illness: 87-year-old female with past medical history of type 2 diabetes who presents emergency room with complaints of a white productive cough with nasal congestion congestion, vomiting, generalized weakness and fatigue x 5 days. She was given oral azithromycin prescription which did not help much as she continued to get worse, developing low-grade fevers and poor PO intake. She does not report positive sick contacts and denies any headache, sore throat, ear pain, shortness of breath or chest pain. Pt is a poor historian. SInce admission she had a chest ct which showed an upperlobe nodule and hence this consult Previous history of smoking WOrsening performance status lately fatigue lately No history of aspiration No sig asbestos exposure Allergies/Medications Allergies: Coded Allergies: No Known Allergies (10/25/17) Home Med List: Azithromycin (Zithromax) 250 MG TABLET 1 DP PO AD ANTIBIOTIC (Reported) 2 the first day followed by 1 for days 2-5 Insulin Aspart (Novolog) 100 UNIT/ML VIAL 0 UNITS SC TIDAC/HS DM 80-150 3units 151-200 4 units 201-250 5 units 251-300 6 units 301-350 7 units 351-400 8 units 401-450 9 units AT bedtime 251-300 2 units 301-350 3 units 351-400 4 units 401-450 5 units Insulin Detemir (Levemir) 100 UNIT/ML VIAL 8 UNITS SC DAILY DM Review of Systems Review of Systems Constitutional: Reports: see HPI. 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 Home Who Do You Live With? self Services at Home: None Smoking Status: Former Smoker ETOH Use: denies use Illicit Drug Use: denies illicit drug use Exam & Diagnostic Data Last 24 Hrs of Vital Signs/I&O Vital Signs Date Time Temp Pulse Resp B/P B/P Pulse O2 O2 Flow FiO2 Mean Ox Delivery Rate 10/27 0800 Room Air Room Air 10/27 0706 98.0 58 18 136/62 93 01/16 0000 Room Air 10/26 2117 98.2 60 18 148/68 93 Room Air 10/26 1600 93 Room Air Room Air 10/26 1509 Room Air 10/26 1415 98.2 60 19 112/68 90 Room Air Intake & Output 10/27 1600 10/27 0800 10/27 0000 Intake Total 120 720 Output Total 300 Balance 120 420 Intake, Oral 120 720 Output, Urine 300 Last 48 Hrs of Labs/Fareed: Laboratory Tests 10/26/17 0709: Anion Gap 12, Estimated GFR > 60, BUN/Creatinine Ratio 21.4, Hemoglobin A1c 10.0 H, CBC w Diff NO MAN DIFF REQ, RBC 4.54, MCV 86.4, MCH 28.9, RDW 12.9, MPV 8.8, Gran % 68.1, Lymphocytes % 14.7 L, Monocytes % 15.3 H, Eosinophils % 1.8, Basophils % 0.1, Absolute Granulocytes 4.3, Absolute Lymphocytes 0.9 L, Absolute Monocytes 1.0 H, Absolute Eosinophils 0.1, Absolute Basophils 0, PUBS MCHC 33.4 10/25/17 1704: Lactic Acid Cancelled 10/25/17 1703: Lactic Acid Cancelled 10/25/17 1425: Lactic Acid 1.9 10/25/17 1425: Anion Gap 21 H, Estimated GFR 52 L, BUN/Creatinine Ratio 20.0, Glucose 250 H, Calcium 9.2, Total Bilirubin 0.8, AST 18, ALT 31, Alkaline Phosphatase 73, Troponin I 0.03, Total Protein 7.3, Albumin 3.8, Globulin 3.5, Albumin/Globulin Ratio 1.1, CBC w Diff NO MAN DIFF REQ, RBC 5.08, MCV 86.8, MCH 29.4, RDW 12.7, MPV 8.3, Gran % 74.8, Lymphocytes % 12.3 L, Monocytes % 12.8 H, Eosinophils % 0.1, Basophils % 0, Absolute Granulocytes 5.0, Absolute Lymphocytes 0.8 L, Absolute Monocytes 0.8 H, Absolute Eosinophils 0, Absolute Basophils 0, PUBS MCHC 33.9 Microbiology 10/26 1812 URINE ROUT: Legionella Antigen - COMP 10/26 1812 URINE ROUT: Streptococcus pneumoniae Antigen (M - COMP 10/25 1400 NASOPHARYN: Influenza Virus A & B Rapid Smear - COMP Assessment/Plan Impression/Plan: Physical Exam General Appearance Alert, Oriented X3, Cooperative, No Acute Distress Skin No Significant Lesion Skin Temp/Moisture Exam: Warm/Dry Sepsis Skin Exam (color): Normal for Ethnicity HEENT PERRLA, EOMI, Mucous Membr. moist/pink Cardiovascular Regular Rate, Normal S1, Normal S2 Lungs crackles on Rt lower base Abdomen Normal Bowel Sounds, Soft, No Tenderness Extremities No Edema, Normal Pulses CT CHEST REVIEWED IMPRESSION: No evidence of pulmonary emboli. Pleural-based spiculated nodular opacities in the right upper lobe (anterior right apex, posterolateral right upper lobe, measuring 1.3 and 1.7 cm in maximum dimension, respectively. These may represent areas of atelectasis, scarring, or inflammatory processes. Neoplasm is difficult to entirely exclude. If further evaluation is desired, consider PET CT scanning. There are 2 borderline upper mediastinal lymph nodes which are nonspecific. Somewhat complex cystic lesion in the cutaneous/subcutaneous tissues anterior to the sternum. Small amount of air in the lesion suggests communication through the skin. The etiology of this lesion is uncertain. A sebaceous cyst may be considered. Cholelithiasis. VTE: NEGATIVE. 87-year-old female with past medical history of insulin dependent type 2 DM who presents with complaints of a white productive cough with nasal congestion congestion, vomiting, generalized weakness and fatigue x 5 days. ISSUES Bronchitis and rule out resolving pna Rt upper lobe pleural based nodule with a broad diff including malignancy ( exsmoker) Sub cyst lower ant sternum present for yrs DM with neuropathy with recent gait issues and inability to walk Poor performance status REC Po abx with ceftin for seven days Will need a pet /ct in 4 weeks Needs follow up appt in my office in 2 weeks prn albuterol Keep hob up Increase activity and pt and ot eval Written instructions given to the patient regarding follow up in 2-3 weeks in my office in [place] and she is aware of her ct scan findings WIll follow Consult Acknowledgment - Thank you for your consult request.
--- NOTE | 2017-10-27 14:53 | Cons- Endocrinology ---
General Information and HPI Consulting Request Date of Consult: 10/27/17 Requested By: medical team Reason for Consult: management of uncontrolled diabetes type 2 Source of Information: patient, old records Exam Limitations: no limitations, poor historian History of Present Illness: 87-year-old female with past medical history of type 2 diabetes who was admitted for white productive cough with nasal congestion, vomiting, generalized weakness and fatigue x 5 days. She was diagnosed with pneumonis vs acute bronchitis. She was put on Levemir 4 units twice a day and Novolog coverage before meals and Novolog coverage at bedtime. Her FSGs were 162, 330, 349, 237, 103 and 219. Allergies/Medications Allergies: Coded Allergies: No Known Allergies (10/25/17) Home Med List: Azithromycin (Zithromax) 250 MG TABLET 1 DP PO AD ANTIBIOTIC (Reported) 2 the first day followed by 1 for days 2-5 Insulin Aspart (Novolog) 100 UNIT/ML VIAL 0 UNITS SC TIDAC/HS DM 80-150 3units 151-200 4 units 201-250 5 units 251-300 6 units 301-350 7 units 351-400 8 units 401-450 9 units AT bedtime 251-300 2 units 301-350 3 units 351-400 4 units 401-450 5 units Insulin Detemir (Levemir) 100 UNIT/ML VIAL 8 UNITS SC DAILY DM Review of Systems Review of Systems Constitutional: Reports: see HPI. Cardiovascular: Denies: chest pain. Respiratory: Reports: cough. GI: Denies: abdominal pain, nausea. Musculoskeletal: Denies: back pain. Hematologic/Endocrine: Denies: polyuria, polydipsia. 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 Home Who Do You Live With? self Services at Home: None Smoking Status: Former Smoker ETOH Use: denies use Illicit Drug Use: denies illicit drug use Exam & Diagnostic Data Last 24 Hrs of Vital Signs/I&O Vital Signs Date Time Temp Pulse Resp B/P B/P Pulse O2 O2 Flow FiO2 Mean Ox Delivery Rate 10/27 0800 Room Air Room Air 10/27 0706 98.0 58 18 136/62 93 10/27 0000 Room Air 10/26 2117 98.2 60 18 148/68 93 Room Air 10/26 1600 93 Room Air Room Air 10/26 1509 Room Air Intake & Output 10/27 1600 10/27 0800 10/27 0000 Intake Total 900 120 720 Output Total 300 Balance 900 120 420 Intake, IV 0 Intake, Oral 900 120 720 Number 0 Bowel Movements Output, Urine 300 Physical Exam General Appearance: no apparent distress Neck: normal inspection Respiratory: decreased breath sounds Cardiovascular: regular rate/rhythm Gastrointestinal: soft Extremities: no edema Labs/Fareed Results: Laboratory Tests 10/26 10/25 10/25 0709 1704 1703 Chemistry Sodium (137 - 145 mmol/L) 141 Potassium (3.5 - 5.1 mmol/L) 3.8 Chloride (98 - 107 mmol/L) 107 Carbon Dioxide (22 - 30 mmol/L) 23 Anion Gap (5 - 16) 12 BUN (7 - 17 mg/dL) 15 Creatinine (0.5 - 1.0 mg/dL) 0.7 Estimated GFR (>60 ml/min) > 60 BUN/Creatinine Ratio (7 - 25 %) 21.4 Hemoglobin A1c (4.2 - 5.8 %) 10.0 H Lactic Acid Cancelled Cancelled Hematology CBC w Diff NO MAN DIFF REQ WBC (4.8 - 10.8 /CUMM) 6.3 RBC (4.20 - 5.40 /CUMM) 4.54 Hgb (12.0 - 16.0 G/DL) 13.1 Hct (37 - 47 %) 39.2 MCV (81.0 - 99.0 FL) 86.4 MCH (27.0 - 31.0 PG) 28.9 RDW (11.5 - 14.5 %) 12.9 Plt Count (130 - 400 /CUMM) 223 MPV (7.4 - 10.4 FL) 8.8 Gran % (42.2 - 75.2 %) 68.1 Lymphocytes % (20.5 - 51.1 %) 14.7 L Monocytes % (1.7 - 9.3 %) 15.3 H Eosinophils % (0 - 5 %) 1.8 Basophils % (0.0 - 2.0 %) 0.1 Absolute Granulocytes (1.4 - 6.5 /CUMM) 4.3 Absolute Lymphocytes (1.2 - 3.4 /CUMM) 0.9 L Absolute Monocytes (0.10 - 0.60 /CUMM) 1.0 H Absolute Eosinophils (0.0 - 0.7 /CUMM) 0.1 Absolute Basophils (0.0 - 0.2 /CUMM) 0 PUBS MCHC (33.0 - 37.0 G/DL) 33.4 Assessment/Plan Assessment/Plan 87-year-old female with past medical history of type 2 diabetes who was admitted for white productive cough with nasal congestion, vomiting, generalized weakness and fatigue x 5 days. She was diagnosed with pneumonis vs acute bronchitis. Her repeat HbA1c was 10%. She was put on Levemir 4 units twice a day and Novolog coverage before meals and Novolog coverage at bedtime. However, her FSGs were 103 and 219 today. Plan: continue the current insulin regimen for now; monitor FSGs; recommend nutrition consult; will follow. Consult Acknowledgment - Thank you for your consult request.
[2017-10-27 15:18] VITALS: BP 100/63
[2017-10-27 22:19] VITALS: BP 112/72
[2017-10-28 06:43] VITALS: BP 132/74
[2017-10-28 08:23] LABS: ABSOLUTE BASOPHIL COUNT 0 /CUMM (0.0-0.2); ABSOLUTE EOSINOPHIL COUNT 0.2 /CUMM (0.0-0.7); ABSOLUTE GRANULOCYTE CT 4.2 /CUMM (1.4-6.5); ABSOLUTE LYMPH COUNT 1.5 /CUMM (1.2-3.4); ABSOLUTE MONOCYTE COUNT 0.8 /CUMM (0.10-0.60); BASOPHIL % 0.5 % (0.0-2.0); HEMATOCRIT 38.6 % (37-47); MEAN CORPUSCULAR HGB 29.3 PG (27.0-31.0); MEAN CORPUSCULAR HGB CONC 33.6 G/DL (33.0-37.0); MEAN CORPUSCULAR VOLUME 87.2 FL (81.0-99.0); MEAN PLATELET VOLUME 8.1 FL (7.4-10.4); PLATELET COUNT 258 /CUMM (130-400); RBC DISTRIBUTION WIDTH 13.1 % (11.5-14.5); RED BLOOD CELL CT 4.43 /CUMM (4.20-5.40); WHITE BLOOD CELL COUNT 6.8 /CUMM (4.8-10.8)
--- NOTE | 2017-10-28 10:03 | PN- Housestaff ---
Braeden ZAMORA,Luly 10/28/17 1003: Assessment/Plan Assessment: 87-year-old female with past medical history of insulin dependent type 2 DM who presents with complaints of a white productive cough with nasal congestion congestion, vomiting, generalized weakness and fatigue x 5 days. Assessment 1. Possible Viral Bronchitis 2. Type 2 DM Plan -ceftin 250 po bid day one Patient remained afebrile and aleukocytosis without any signs of infection. CTA chest ruled out PE and had no consolidation resembling pneumonia. there was a "nodule" which pulm thinks is round atelectasis, more infection than malignancy. -f/u blood cultures x 2 and sputum culture. No growth so far. -Urine strept and Legionella Ags pending -Resumed her home insulin SS and levemir -Mucinex and tessalon perls -TRC eval hyperglycemia to 219 today. endo consult placed, hbaic 10 ]needs 3 day stay for str Diabetic diet DVT ppx-SC lovenox FC Rodrick Woodard 10/28/17 1253: Attending MD Review Statement Attending Statement Attending MD Statement: examined this patient, discuss w/resident/PA/TRANSPORT TANK TECHNICIAN, agreed w/resident/PA/TRANSPORT TANK TECHNICIAN, discussed with family, reviewed EMR data (avail), discussed with nursing, discussed with case mgmt, reviewed images, amended to note Attending Assessment/Plan: Patient seen/examined bedside. Patient denies any new complaints. F/u CTA chest revealed RUL nodule spiculated r/o malignancy in former smoker, negative for PE, pulmonary consulted and recommend outpatient w/u with repeat CT/PET in 4 weeks. Patient found to have uncontrolled Diabetes Mellitus with hyperglycemia. Patient is on insulin therapy and follow Dr Diamond as endocrinology outpatient. Informed endocrinology. PT eval for safe dc planning recommend [facility] Endocrinology Pulmonary FOLLOW UP Dr Diamond in [address] [facility] in 2 weeks of discharge
[2017-10-28] MEDS ORDERED: CEFUROXIME250 M1 PO (11:53)
--- NOTE | 2017-10-28 13:41 | PN- Pulmonary ---
Subjective HPI/Critical Care Issues: Doing about the same sleeping Objective Current Medications: Current Medications Sig/Franny Start time Last Medication Dose Route Stop Time Status Admin Acetaminophen 650 MG Q6P PRN 10/25 1814 AC PO Benzonatate 100 MG TID 10/25 181 AC 10/28 PO 0912 Cefuroxime Sodium 250 MG Q12 10/27 1007 AC 10/28 PO 0912 Enoxaparin Sodium 40 MG DAILY 10/26 1999 AC 10/28 SC 0912 Guaifenesin 600 MG Q12 10/25 2199 AC 10/28 PO 0912 Insulin Aspart 0 AC & AT BEDTIME 10/25 2199 AC 10/28 SC 1235 Insulin Detemir 4 UNITS BID 10/25 2199 AC 10/28 SC 0912 Vital Signs & I&O Last 24 Hrs of Vitals and I&O: Vital Signs Date Time Temp Pulse Resp B/P B/P Pulse O2 O2 Flow FiO2 Mean Ox Delivery Rate 10/28 0643 97.6 60 18 132/74 94 10/27 2219 98.2 70 20 112/72 94 10/27 1519 Room Air Room Air 10/27 1518 98.4 65 20 100/63 93 Room Air Intake & Output 10/28 1600 10/28 0800 10/28 0000 Intake Total 240 240 Output Total 350 Balance -110 240 Intake, Oral 240 240 Output, Urine 350 Impression/Plan Impression/Plan Impression/Plan: Physical Exam General Appearance Alert, Oriented X3, Cooperative, No Acute Distress Skin No Significant Lesion Skin Temp/Moisture Exam: Warm/Dry Sepsis Skin Exam (color): Normal for Ethnicity HEENT PERRLA, EOMI, Mucous Membr. moist/pink Cardiovascular Regular Rate, Normal S1, Normal S2 Lungs crackles on Rt lower base Abdomen Normal Bowel Sounds, Soft, No Tenderness Extremities No Edema, Normal Pulses CT CHEST REVIEWED IMPRESSION: No evidence of pulmonary emboli. Pleural-based spiculated nodular opacities in the right upper lobe (anterior right apex, posterolateral right upper lobe, measuring 1.3 and 1.7 cm in maximum dimension, respectively. These may represent areas of atelectasis, scarring, or inflammatory processes. Neoplasm is difficult to entirely exclude. If further evaluation is desired, consider PET CT scanning. There are 2 borderline upper mediastinal lymph nodes which are nonspecific. Somewhat complex cystic lesion in the cutaneous/subcutaneous tissues anterior to the sternum. Small amount of air in the lesion suggests communication through the skin. The etiology of this lesion is uncertain. A sebaceous cyst may be considered. Cholelithiasis. VTE: NEGATIVE. 87-year-old female with past medical history of insulin dependent type 2 DM who presents with complaints of a white productive cough with nasal congestion congestion, vomiting, generalized weakness and fatigue x 5 days. ISSUES Bronchitis and rule out resolving pna Rt upper lobe pleural based nodule with a broad diff including malignancy ( exsmoker) Sub cyst lower ant sternum present for yrs DM with neuropathy with recent gait issues and inability to walk Poor performance status REC Po abx with ceftin for seven days Will need a pet /ct in 4 weeks Needs follow up appt in my office in 2 weeks prn albuterol Keep hob up Increase activity and pt and ot eval Written instructions given to the patient regarding follow up in 2-3 weeks in my office in [place] and she is aware of her ct scan findings WIll follow
[2017-10-28 14:49] VITALS: BP 126/58
[2017-10-28 15:27] VITALS: BP 126/58
--- NOTE | 2017-10-28 17:52 | PN- Diabetes ---
Assessment/Plan Assessment: 87-year-old female with past medical history of type 2 diabetes who was admitted for white productive cough with nasal congestion, vomiting, generalized weakness and fatigue x 5 days. She was diagnosed with pneumonis vs acute bronchitis. Her repeat HbA1c was 10%. She was put on Levemir 4 units twice a day and Novolog coverage before meals and Novolog coverage at bedtime. Her FSGs were 103, 219, 325, 235, 165. Plan: continue the current insulin regimen for now; monitor FSGs. f/u in office after discharge. Subjective Subjective: She feels okay this morning. Objective Last 24 Hrs of Vital Signs/I&O Vital Signs Date Time Temp Pulse Resp B/P B/P Pulse O2 O2 Flow FiO2 Mean Ox Delivery Rate 10/28 1527 97.6 60 20 126/58 10/28 1449 97.6 60 20 126/58 93 Room Air 10/28 0643 97.6 60 18 132/74 94 10/27 2219 98.2 70 20 112/72 94 Intake & Output 10/28 1600 10/28 0800 10/28 0000 Intake Total 1140 240 240 Output Total 350 Balance 1140 -110 240 Intake, IV 0 Intake, Oral 1140 240 240 Number 0 Bowel Movements Output, Urine 350 Findings Pertinent Lab/Fareed Results: Laboratory Tests 10/28 0701 Chemistry Sodium (137 - 145 mmol/L) 142 Potassium (3.5 - 5.1 mmol/L) 3.9 Chloride (98 - 107 mmol/L) 104 Carbon Dioxide (22 - 30 mmol/L) 28 Anion Gap (5 - 16) 10 BUN (7 - 17 mg/dL) 16 Creatinine (0.5 - 1.0 mg/dL) 0.8 Estimated GFR (>60 ml/min) > 60 BUN/Creatinine Ratio (7 - 25 %) 20.0 Hematology CBC w Diff NO MAN DIFF REQ WBC (4.8 - 10.8 /CUMM) 6.8 RBC (4.20 - 5.40 /CUMM) 4.43 Hgb (12.0 - 16.0 G/DL) 13.0 Hct (37 - 47 %) 38.6 MCV (81.0 - 99.0 FL) 87.2 MCH (27.0 - 31.0 PG) 29.3 RDW (11.5 - 14.5 %) 13.1 Plt Count (130 - 400 /CUMM) 258 MPV (7.4 - 10.4 FL) 8.1 Gran % (42.2 - 75.2 %) 62.0 Lymphocytes % (20.5 - 51.1 %) 22.7 Monocytes % (1.7 - 9.3 %) 11.8 H Eosinophils % (0 - 5 %) 3.0 Basophils % (0.0 - 2.0 %) 0.5 Absolute Granulocytes (1.4 - 6.5 /CUMM) 4.2 Absolute Lymphocytes (1.2 - 3.4 /CUMM) 1.5 Absolute Monocytes (0.10 - 0.60 /CUMM) 0.8 H Absolute Eosinophils (0.0 - 0.7 /CUMM) 0.2 Absolute Basophils (0.0 - 0.2 /CUMM) 0 PUBS MCHC (33.0 - 37.0 G/DL) 33.6
== END 2017-10-28 16:20 | DRG 202 ==
LOC: ERH 13:48 → 2NB 16:02 → ERHI 16:02 → ENRESERV 17:19 → ENTRNSPT 17:52 → EDTRNSPTSTS 18:00 → 2NB 18:08 → CMPTRNSPT 18:32 → 2NB 10-26 09:31
PROVIDERS: Physician Assistant; Student in an Organized Health Care Education/Training Program
DX: J20.8 Acute bronchitis due to other specified organisms (principal); E87.2 Acidosis; E11.40 Type 2 diabetes mellitus with diabetic neuropathy, unspecified; E11.65 Type 2 diabetes mellitus with hyperglycemia; R09.02 Hypoxemia; Z79.4 Long term (current) use of insulin; Z87.891 Personal history of nicotine dependence; L72.3 Sebaceous cyst; R26.81 Unsteadiness on feet
CPT/HCPCS: 2NBP; 36415; 71046; 82436; 87040; 87070; 87449; 87450; 87804; 87804-59; 93005; 93010; 96374; 97110-GO; 97116-GO; 97161-GP; 97530-GO; J0456; J0696; J1650; J7040